=== PATIENT | male | born 1960 | race Caucasian/White ===

== ENCOUNTER 2018-03-15 20:33 | Inpatient (IN) | payer SELFPAY ==
[~2018-03-15] VITALS: Ht 175.3 cm; Wt 68.5 kg
[2018-03-15 20:32] VITALS: O2SAT 100
[~2018-03-15 20:33] MED LIST: Z.0.NO CURRENT MEDS
[2018-03-15] MEDS ORDERED: SODIUM CHLOR 0.9% 1000 ML INJ 1,000 ML IV ONE (20:36)
[2018-03-15 20:37] VITALS: BP 153/96; PULSE 90; RESP 30; TEMP 97.3; O2SAT 100
[2018-03-15] MEDS ORDERED: HEPARIN SODIUM - IV 10,000 UNITS/10 ML VIAL IV PUSH STA (20:44)
[2018-03-15] MEDS ORDERED: SODIUM CHLORIDE 0.9% FLUSH 10 ML FLUSH IVF PRN (20:45)
[2018-03-15 20:50] VITALS: BP 158/100; PULSE 84; RESP 28; O2SAT 100
[2018-03-15 20:54] LABS: AUTOMATED NEUTROPHIL # 3.7 TH/MM3 (1.8-7.7); BASOPHIL % 0.7 % (0.0-2.0); EOSINOPHIL # 0.1 TH/MM3 (0-0.4); EOSINOPHIL % 1.3 % (0.0-4.0); HEMATOCRIT 39.9 % (39.0-51.0); HEMOGLOBIN 13.5 GM/DL (13.0-17.0); LYMPH % 39.5 % (9.0-44.0); LYMPHOCYTE # 2.8 TH/MM3 (1.0-4.8); MEAN CELL VOLUME 100.5 FL (80.0-100.0); MEAN CORPUSCULAR HEMOGLOBIN 34.1 PG (27.0-34.0); MEAN CORPUSCULAR HGB CONC 33.9 % (32.0-36.0); MEAN PLATELET VOLUME 8.1 FL (7.0-11.0); MONO % 6.9 % (0.0-8.0); MONOCYTE # 0.5 TH/MM3 (0-0.9); NEUT % 51.6 % (16.0-70.0); PLATELET COUNT 201 TH/MM3 (150-450); RED BLOOD COUNT 3.97 MIL/MM3 (4.50-5.90); RED CELL DISTRIBUTION WIDTH 13.4 % (11.6-17.2); WHITE BLOOD COUNT 7.2 TH/MM3 (4.0-11.0)
[2018-03-15] MEDS ORDERED: MIDAZOLAM HCL 2 MG/2 ML VIAL ONE (20:58)
[2018-03-15] MEDS ORDERED: HEPARIN SODIUM - IV 10,000 UNITS/10 ML VIAL ONE (20:58)
[2018-03-15] MEDS ORDERED: HEPARIN-NS/PF INJ 1,500 ML ONE (20:58)
[2018-03-15] MEDS ORDERED: LIDOCAINE HCL 1% PF 30 ML VIAL ONE (21:00)
[2018-03-15 21:10] LABS: CALCIUM 7.9 MG/DL (8.5-10.1)
--- NOTE | 2018-03-15 21:10 | PD ---
HPI Chief Complaint: STEMI Alert Time Seen by Provider: 20:36 Travel History International Travel<30 days: No Contact w/Intl Traveler<30days: No Traveled to known affect area: No History of Present Illness HPI 57-year-old male states that he was having chest pain this morning. He states it got worse at about 5 PM. His finally called the ambulance for him and he had Significant elevation so a STEMI alert was called. He was given aspirin and 3 nitroglycerin which lowered his blood pressure but then he was given IV fluids with adequate response. He states he is also having nausea. He states his pain is better with the medicine. He states he has not seen a physician in 10 years. He denies any other concurrent complaints. [facility] Past Medical History Medical History: Denies Significant Hx Cardiovascular Problems: No Tetanus Vaccination: Unknown Influenza Vaccination: No Past Surgical History Surgical History: No Previous Surgery Family History Family Myocardial Infarction: Yes (FATHER) Social History Alcohol Use: No Tobacco Use: Yes (1 PPD) Substance Use: Yes (SMOKES MARIJUANA) Allergies-Medications (Allergen,Severity, Reaction): Coded Allergies: No Known Allergies (Verified Adverse Reaction, Unknown, 03/15/18) Reported Meds & Prescriptions Reported Meds & Active Scripts Active No Active Prescriptions or Reported Medications Review of Systems Except as stated in HPI: all other systems reviewed are Neg Physical Exam Narrative GENERAL: 57-year-old male who appears ill SKIN: Focused skin assessment warm/dry. HEAD: Atraumatic. Normocephalic. EYES: Pupils equal and round. No scleral icterus. No injection or drainage. ENT: No nasal bleeding or discharge. Mucous membranes pink and moist. NECK: Trachea midline. CARDIOVASCULAR: Regular rate and rhythm. RESPIRATORY: No accessory muscle use. Clear to auscultation. Breath sounds equal bilaterally. GASTROINTESTINAL: Abdomen soft, non-tender, nondistended. MUSCULOSKELETAL: No obvious deformities. No clubbing. No cyanosis. No edema. NEUROLOGICAL: Awake and alert. No obvious cranial nerve deficits. Motor grossly within normal limits. Normal speech. PSYCHIATRIC: Appropriate mood and affect; insight and judgment normal. Data Data Last Documented VS Vital Signs Date Time Temp Pulse Resp B/P (MAP) Pulse Ox O2 Delivery O2 Flow Rate FiO2 03/15/18 20:51 03/15/18 20:50 84 28 100 Nasal Cannula 3.00 03/15/18 20:37 97.3 Orders Orders Troponin I (03/15/18 20:36) Ckmb (Isoenzyme) Profile (03/15/18 20:36) Complete Blood Count With Diff (03/15/18 20:36) I-Stat Profile (03/15/18 20:36) I-Stat Creatinine (03/15/18 20:36) Calcium (03/15/18 20:36) Magnesium (Mg) (03/15/18 20:36) Prothrombin Time / Inr (Pt) (03/15/18 20:36) Act Partial Throm Time (Ptt) (03/15/18 20:36) B-Type Natriuretic Peptide (03/15/18 20:36) Chest, Single Ap (03/15/18 20:36) Electrocardiogram (03/15/18 20:36) Oxygen Administration (03/15/18 20:36) Iv Access Insert/Monitor (03/15/18 20:36) Oximetry (03/15/18 20:36) Sodium Chlor 0.9% 1000 Ml Inj (Ns 1000 M (03/15/18 20:36) Sodium Chloride 0.9% Flush (Ns Flush) (03/15/18 20:45) Heparin Inj (Heparin Inj) (03/15/18 20:44) Admit Order (Ed Use Only) (03/15/18 20:52) Labs Laboratory Tests Test 03/15/18 20:35 White Blood Count 7.2 TH/MM3 Red Blood Count 3.97 MIL/MM3 Hemoglobin 13.5 GM/DL Bedside Hemoglobin 13.3 G/DL Hematocrit 39.9 % Bedside Hematocrit 39.0 % Mean Corpuscular Volume 100.5 FL Mean Corpuscular Hemoglobin 34.1 PG Mean Corpuscular Hemoglobin Concent 33.9 % Red Cell Distribution Width 13.4 % Platelet Count 201 TH/MM3 Mean Platelet Volume 8.1 FL Neutrophils (%) (Auto) 51.6 % Lymphocytes (%) (Auto) 39.5 % Monocytes (%) (Auto) 6.9 % Eosinophils (%) (Auto) 1.3 % Basophils (%) (Auto) 0.7 % Neutrophils # (Auto) 3.7 TH/MM3 Lymphocytes # (Auto) 2.8 TH/MM3 Monocytes # (Auto) 0.5 TH/MM3 Eosinophils # (Auto) 0.1 TH/MM3 Basophils # (Auto) 0.0 TH/MM3 CBC Comment DIFF FINAL Differential Comment Prothrombin Time 10.7 SEC Prothromb Time International Ratio 1.1 RATIO Activated Partial Thromboplast Time 23.5 SEC Bedside Sodium 142 MMOL/L Bedside Potassium 3.0 MMOL/L Bedside Chloride 103 MMOL/L Bedside Blood Urea Nitrogen 19 MG/DL Bedside Creatinine 1.1 MG/DL Bedside Glucose 137 MG/DL Calcium Level 7.9 MG/DL MDM Medical Decision Making Medical Screen Exam Complete: Yes Emergency Medical Condition: Yes Medical Record Reviewed: Yes (No prior significant records here) Interpretation(s) EKG shows elevation to 3 and aVF with reciprocal changes I stats reviewed with potassium 3.0 noted otherwise no significant findings Prelim chest x-ray showed normal mediastinum without significant pneumothorax CBC & BMP Diagram 03/15/18 20:35 Differential Diagnosis STEMI, dissection, anemia Narrative Course Patient arrived and had received aspirin and nitroglycerin and IV fluids. Pain had improved. After review of I stats and chest x-ray patient was given heparin. Dispensing Optician Apprentice was again updated and patient went to the Traveling Nurse. I went and talked with family and the waiting room and they were updated as well and history confirmed. Critical Care Narrative Aggregate critical care time was 35 minutes. Time to perform other separately billable procedures was not included in the critical care time. My time did not include minutes spent treating any other patients simultaneously or on activities that did not directly contribute to the patient's treatment. The services I provided to this patient were to treat and/or prevent clinically significant deterioration that could result in: Cardiogenic shock, I provided critical care services requiring my management, as noted below: Chart data review, documentation time, medication orders and management, vital sign assessments/reviewing monitor data, ordering and reviewing lab tests, ordering and interpreting/reviewing x-rays and diagnostic studies, care of the patient and discussion of the patient with the admitting physicians. Physician Communication Physician Communication dr wall notified of ambulance call and is on his way in dr wall updated at bedside Diagnosis Primary Impression: STEMI (ST elevation myocardial infarction) Qualified Codes: I21.11 - ST elevation (STEMI) myocardial infarction involving right coronary artery Scripts No Active Prescriptions or Reported Meds Kori Ruiz MD Mar 15, 2018 21:10
[2018-03-15] MEDS ORDERED: BIVALIRUDIN 250 MG VIAL ONE ×2 (21:11→22:02)
[2018-03-15 21:12] LABS: INTERNATIONAL NORMALIZED RATIO 1.1 RATIO; PROTHROMBIN TIME - PATIENT 10.7 SEC (9.8-11.6)
[2018-03-15 21:16] LABS: MAGNESIUM 1.8 MG/DL (1.5-2.5)
[2018-03-15] MEDS ORDERED: ATROPINE SULFATE 1 MG/10 ML SYRINGE ONE ×2 (21:24→22:22)
--- NOTE | 2018-03-15 21:24 | RADRPT ---
EXAM DATE: 03/15/2018 8:48 PM EDT AGE/SEX: 57 years / Male INDICATIONS: Stemi alert CLINICAL DATA: This is the patient's initial encounter. Patient reports that signs and symptoms have been present for 1 day and indicates a pain score of 10/10. MEDICAL/SURGICAL HISTORY: None. None. COMPARISON: [facility], CHEST SINGLE AP, 04/04/2011. . FINDINGS: A single AP view of the chest demonstrates the lungs to be symmetrically aerated without evidence of mass, infiltrate or effusion. The cardiomediastinal contours are unremarkable. Osseous structures a re intact. CONCLUSION: No acute cardiopulmonary disease. Electronically signed by: Con Gusman MD 03/15/2018 9:23 PM EDT
[2018-03-15 21:39] LABS: TROPONIN I 0.63 NG/ML (0.02-0.05)
[2018-03-15] MEDS ORDERED: TICAGRELOR 90 MG TAB PO ONE (21:43)
[2018-03-15 22:15] VITALS: PULSE 91
[2018-03-15] MEDS ORDERED: BIVALIRUDIN INJ 250 MG in SODIUM CHLORIDE 0.9% INJ 50 ML IV SCH (22:19)
[2018-03-15] MEDS ORDERED: SODIUM CHLOR 0.9% 1000 ML INJ 1,000 ML IV SCH (22:19)
--- NOTE | 2018-03-15 22:23 | CATHPROC ---
[employer] HIS Report Study Information Study Number Admission Scheduled Start Study Start [id number] Mar 15 2018 8:33PM 03/15/2018 Mar 15 2018 8:56PM [facility] Cardiac Catheterization Admit Source Facility Department Emergency department [facility] - Operations Officer Physician and Clinical Staff Initial Carl Glover Workforce Development Vice President Jem Cazares,RN Workforce Development Vice PresidentJem Mai,RN Recorder Sissy Fernandes,RT(R) (BS) Scrub Clau Dyer,COLOR STRAINER TECH2 Procedures Performed Procedure Location (Site) Vessel Name Angiogram LV LV Ventricle Coronary Angiograms LCA Left Coronary Drug Eluting Inflatio RCA Right Coronary Drug Eluting Inflatio RCA Dist Right Coronary Drug Eluting Inflatio RCA Mid Right Coronary Drug Eluting Inflatio RCA Prox Right Coronary L Heart Cath PTCA RCA Prox Right Coronary Wire insertion Fem Art (right) Femoral Art Equipment Time Record Center Coordinator Description Size Mfg Part Number Used/Scraped WIRE, BALANCE MIDDLEWEIGHT [id number] 21:13 [employer] 190CM Used 190CM *[id number] WIRE, HI TORQUE ALLSTAR [id number] 21:15 [employer] 190CM Used 190CM *[id number] TRANSDUCER, TRUWAVE [id number] 21:06 MILLER RIVERO * Used W/STOCKCOCK *[id number] 21:44 [employer], SYNERGY 4.0 X 8MM Used *[id number] [phone] *[id number] [phone] *[id number] PIGTAIL ANG. 145 INFINITI [phone] CATHETER *[id number] 21:55 [employer] ANGIOSEAL, FR6 VIP FR 6 Used *[id number] 21:06 [email or web address] BLANKET,WARM AIR CCL * Used *[id number] 21:06 [employer] PACK, CCL CUSTOM * Used *[id number] 21:06 [employer] PACER PEN, SKIN DUAL W/ RULER * Used *[id number] 21:15 [employer] BALLOON, 3.0 X 20MM EUPHORA 20MM Used *[id number] 21:27 [employer] STENT, 4.0 18MM SANCHEZ 4.0 18MM Used *[id number] 21:32 [employer] STENT, 4.0 18MM SANCHEZ 4.0 18MM Used *[id number] 21:36 [employer] STENT, 4.0 8MM SANCHEZ 4.0 8MM Used *[id number] 21:38 [employer] STENT, 4.0 8MM SANCHEZ 4.0 8MM Used *[id number] 21:23 [employer] 30 ROBINA INDEFLATOR Used *[id number] 21:06 [employer] SHEATH, FR6.5 PRELUDE 11CM FR 6.5 038ACT Used *[id number] 21:06 [employer] WIRE, 3MMJ .035 180CM 180CM Used *[id number] 21:06 [employer] MANIFOLD, 4 PORT * Used *[id number] 21:06 [employer] OMNIPAQUE, 350 MG, 150ML 150ML [id number] Used Equipment Model, Serial, Lot Number and Expiration Data Description Model Number Serial Number Lot Number Expiration Date STENT, 4.0 18MM SANCHEZ [id number] 11-15-2019 STENT, 4.0 18MM SANCHEZ [id number] 09-03-2019 History: Current Medications Medication Dosage/Unit Route Frequency Last Date/Time Taken HEPARIN History: Allergies Allergy Reaction No Known Allergies History: Risk Factors Family History of Hypertension Dyslipidemia Previous GA Previous Heart Failure Premature CAD No No No No No Prior Valve Prior PCI Prior CABG Surgery No No No Cerebrovascular Peripheral Artery Chronic Lung On Dialysis Diabetes Disease Disease Disease No No No No No History: Symptoms/Diagnosis Selection Items Chest pain History: Stress Tests Stress or Imaging Studies Performed No Labs Glucose (mg/dl) BUN (mg/dl) 74.00-106.00 7.00-18.00 137 19 Na (meq/l) K (meq/l) 136.00-145.00 3.50-5.10 142 3 Medication Medication Total Dose (Bolus/Oral) Medication Total Dosage/Unit 1% XYLOCAINE 20 mL ANGIOMAX BOLUS 11 mL ATROPINE 1 mg BRILINTA 180 mg Medications (Bolus/Oral) Medication Time Given Dosage/Unit Administered By Reason 1% XYLOCAINE 03/15/2018 9:05:26 PM 20 mL Carl Wade 20 mL 1% XYLOCAINE given in lab by Carl Wade in Right Groin via Subcutaneous. ANGIOMAX BOLUS 03/15/2018 9:13:54 PM 11 mL Jem Hernandez 11 mL ANGIOMAX BOLUS given in lab by Jem Hernandez RN in Left Antecubital via Peripheral IV. ATROPINE 03/15/2018 9:21:47 PM 1 mg Jem Hernandez 1 mg ATROPINE given in lab by eJm Hernandez RN in Right Antecubital via Peripheral IV. BRILINTA 03/15/2018 10:00:41 PM 180 mg Jem Cazares 180 mg BRILINTA given in lab by Jem Cazares RN via Oral. Medication (Drip) Medication Time Given Dosage/Unit Concentration/Unit Diluent (ml) Solutio n ANGIOMAX DRIP 03/15/2018 9:15:23 PM 1.754 mg/kg/hr 250 mg 50 NaCl .9 1.754 mg/kg/hr ANGIOMAX DRIP given in lab by Jem Cazares RN in Right Antecubital via Peripheral IV. Pump/Drip Flow = 24.9 ml/hr using NaCl .9 with a concentration of 250 mg in 50 ml. IV Solutions 03/15/2018 9:00:59 PM 0 mL (IV) 500 NaCl .9 IV Solutions given in lab by Jem Hernandez RN in Right Antecubital via Peripheral IV. Pump/Drip Flow = 30 ml/hr using NaCl .9. MERCEDES-SYNEPHRINE 03/15/2018 9:22:49 PM 0.2 mg 0.2 mg MERCEDES-SYNEPHRINE given in lab by Jem Hernandze RN in Right Antecubital via Peripheral IV. Initial Case Assessment Cardiovascular HR Rhythm NIBP Chest Pain 88 reg 145/98 8 Edema Present Skin color Skin None Normal Warm Dry Circulatory - Right Pulses Dorsalis Pedis Femoral 2 2 Scale (0,1,2,3,4,d) Circulatory - Left Pulses Dorsalis Pedis Femoral 2 2 Scale (0,1,2,3,4,d) Circulatory - Lower Extremities Color Lower Right Color Lower Left Normal Normal Neurological State Oriented to time-place- Alert Moves all extremities person Respiration - General Respiration Rate SpO2 (%) (B/min) 20 97 Chronological Log Time Study Chronological Log 20:54:40 Patient arrived via Bed. 20:55:42 Patient Name, D.O.B, / Armband Verified By R.N. Vitals capture started with the following parameters, Patient=Adult, Interval=5 min, Initial Pr mdfitr=794 mmHg, 21:00:41 Deflation Rate=5 mmHg, Cuff placed on Left Arm 21:00:43 Consent signed by the physician and the patient and verified by the Operations Officer staff. 21:00:44 Pre-op and post- op instructions given; patient acknowledges understanding of instructions. 21:00:49 Verbal Stimulation=2 Physical Stimulation=2 Airway=2 Respiration=2 TOTAL=8. (0=absent, 1=li mited, 2=present) 21:00:53 Presedation assessment performed by Operations Officer RN. 21:00:56 Patient Warmer Placed on the Table. 21:00:57 Disposable Defibrillator Pads Placed On Patient. 21:00:58 Sammy Prominences Protected 21:00:59 A # 20 IV was noted in the Antecubital (right). Grade = 0 IV Solutions given in lab by Jem Hernandez RN in Right Antecubital via Peripheral IV. Pump/Dri p Flow = 30 ml/hr using 21:00:59 NaCl .9. 21:01:00 History and physical on the chart or being dictated. Assessment: Initial Case, HR=88 BPM, Rhythm=reg, KZFW=741/98 mmhg, Chest Pain=8, Edema=None, Co hellen=Normal, Skin = Warm, Dry Right Pulses: Virgil Ped=2, Femoral=2 Left Pulses: Virgil Ped=2, Femoral=2 21:01:01 Lower Right Extremities: Color=Normal Lower Left Extremities: Color=Normal Neurological: State=Alert, Ox3, CARDONA Respiration: Resp=20 B/min, SpO2=97 % 21:01:04 Bilateral groins prepped with 2% chlorhexidine, and draped after a 3 minute waiting time. 21:01:36 HR=89 bpm, UNRE=723/101 mmhg, SpO2=98.0 %, Resp=22 B/min, Pain=8, Gary=10, Lomeli=2 21:02:20 Reference ECG taken Time Out. Correct patient, correct procedure, correct physician, labs, allergies, and equipment verified with orthodontic laboratory technician 21:03:34 team present. Fire risk assesment completed (see hard stop sheet for coding). Time Out Conc urred by MD and individual staff in procedure. 21:04:21 Case Start 21:04:52 Pressure channel 1 zeroed. 21:05:26 20 mL 1% XYLOCAINE given in lab by Carl Wade in Right Groin via Subcutaneous. 21:05:32 Access site was Right Femoral Artery. 21:05:39 A SHEATH, FR6.5 PRELUDE 11CM FR 6.5 was advanced into the Fem Art (right) using the Percuta neous technique. A JL 4.5 GUIDE CATHETER FR 6 was advanced over a wire. OMNIPAQUE, 350 MG, 150ML 150ML was used for 21:06:00 injections. 21:06:17 HR=89 bpm, WQYJ=743/98 mmhg, SpO2=97.0 %, Resp=21 B/min, Pain=8, Gary=10, Lomlei=2 Recorded Pressure: Ao, HR=84, Condition=Condition 1 21:07:21 (Aorta) Ao 136/87/109 21:08:11 The LCA was injected and visualized at various angles. OMNIPAQUE, 350 MG, 150ML 150ML used . 21:08:59 Catheter was removed A JR 4.0 GUIDE CATHETER FR 6 was advanced over a wire. OMNIPAQUE, 350 MG, 150ML 150ML was used for 21:09:00 injections. Recorded Pressure: LV, HR=96, Condition=Condition 1 21:10:21 (Left Ventricle) LV 131/6/47 21:11:18 HR=87 bpm, VPHW=488/88 mmhg, SpO2=98.0 %, Resp=21 B/min, Pain=8, Gary=10, Lomeli=2 21:12:20 A WIRE, BALANCE MIDDLEWEIGHT 190CM 190CM was inserted via Fem Art (right). 21:13:54 11 mL ANGIOMAX BOLUS given in lab by Jem Hernandez RN in Left Antecubital via Peripheral I V. 21:14:49 Wire removed 21:14:51 A WIRE, [employer] ALLSTAR 190CM 190CM was inserted via Fem Art (right). 1.754 mg/kg/hr ANGIOMAX DRIP given in lab by Jem Cazares RN in Right Antecubital via Peripher al IV. Pump/Drip 21:15:23 Flow = 24.9 ml/hr using NaCl .9 with a concentration of 250 mg in 50 ml. 21:16:11 Wire removed for reshaping 21:16:15 HR=81 bpm, BSMJ=593/92 mmhg, SpO2=98.0 %, Resp=16 B/min, Pain=8, Gary=10, Lomeli=2 21:21:20 HR=62 bpm, IXHG=195/72 mmhg, SpO2=98.0 %, Resp=17 B/min, Pain=8, Gary=10, Lomeli=2 21:21:47 1 mg ATROPINE given in lab by Jem Hernandez RN in Right Antecubital via Peripheral IV. A BALLOON, 3.0 X 20MM EUPHORA 20MM was inserted over WIRE, HI TORQUE ALLSTAR 190CM 190CM via th e Fem 21:22:18 Art (right). A BALLOON, 3.0 X 20MM EUPHORA 20MM over a WIRE, HI TORQUE ALLSTAR 190CM 190CM in the RCA Prox w as 21:22:31 inflated using a 30 ROBINA INDEFLATOR at 8 robina for 18 sec. 21:22:49 0.2 mg MERCEDES-SYNEPHRINE given in lab by Jem Hernandez RN in Right Antecubital via Peripheral IV. A BALLOON, 3.0 X 20MM EUPHORA 20MM over a WIRE, HI TORQUE ALLSTAR 190CM 190CM in the RCA Prox w as 21:23:16 inflated using a 30 ROBINA INDEFLATOR at 8 robina for 10 sec. 21:23:25 Balloon Removed A BALLOON, 3.0 X 20MM EUPHORA 20MM was inserted over WIRE, HI TORQUE ALLSTAR 190CM 190CM via th e Fem 21:24:38 Art (right). A BALLOON, 3.0 X 20MM EUPHORA 20MM over a WIRE, HI TORQUE ALLSTAR 190CM 190CM in the RCA Prox w as 21:24:50 inflated using a 30 ROBINA INDEFLATOR at 12 robina for 10 sec. 21:25:46 Balloon Removed 21:26:15 QN=190 bpm, BOCS=327/87 mmhg, SpO2=96.0 %, Resp=15 B/min, Pain=8, Gary=10, Lomeli=2 A STENT, 4.0 18MM SANCHEZ 4.0 18MM was advanced through a JR 4.0 GUIDE CATHETER FR 6 over a WIRE, HI TORQUE 21:26:51 ALLSTAR 190CM 190CM. A STENT, 4.0 18MM SANCHEZ 4.0 18MM was deployed using a 30 ROBINA INDEFLATOR at 12 atmospheres for 17 seconds in 21:27:30 the RCA Mid. 21:27:58 Delivery device removed A STENT, 4.0 18MM SANCHEZ 4.0 18MM was advanced through a JR 4.0 GUIDE CATHETER FR 6 over a WIRE, HI TORQUE 21:29:38 ALLSTAR 190CM 190CM. A STENT, 4.0 18MM SANCHEZ 4.0 18MM was deployed using a 30 ROBINA INDEFLATOR at 18 atmospheres for 18 seconds in 21:30:29 the RCA Prox. 21:31:16 HR=98 bpm, TPFO=139/72 mmhg, Resp=21 B/min, Pain=8, Gary=10, Lomeli=2 21:32:35 Delivery device removed A STENT, 4.0 8MM SANCHEZ 4.0 8MM was advanced through a JR 4.0 GUIDE CATHETER FR 6 over a WIRE, HI TORQUE 21:34:01 ALLSTAR 190CM 190CM. 21:36:15 HR=98 bpm, XVWL=671/79 mmhg, SpO2=94.0 %, Resp=19 B/min, Pain=8, Gary=10, Lomeli=2 A STENT, 4.0 8MM SANCHEZ 4.0 8MM was deployed using a 30 ROBINA INDEFLATOR at 18 atmospheres for 10 s econds in the 21:36:42 RCA Prox. A STENT, 4.0 8MM SANCHEZ 4.0 8MM was advanced through a JR 4.0 GUIDE CATHETER FR 6 over a WIRE, HI TORQUE 21:37:55 ALLSTAR 190CM 190CM. A STENT, 4.0 8MM SANCHEZ 4.0 8MM was deployed using a 30 ROBINA INDEFLATOR at 12 atmospheres for 12 s econds in the 21:38:14 RCA Dist. A STENT, 4.0 8MM SANCHEZ 4.0 8MM was deployed using a 30 ROBINA INDEFLATOR at 12 atmospheres for 12 s econds in the 21:39:09 RCA Dist. :39:30 Delivery device removed 21:41:16 HR=98 bpm, TVZW=486/74 mmhg, SpO2=96.0 %, Resp=19 B/min, Pain=8, Gary=10, Lomeli=2 A STENT, SYNERGY 4.0 X 8MM was advanced through a JR 4.0 GUIDE CATHETER FR 6 over a WIRE, HI TO RQUE 21:42:39 ALLSTAR 190CM 190CM. A STENT, SYNERGY 4.0 X 8MM was deployed using a 30 ROBINA INDEFLATOR at 14 atmospheres for 18 seco nds in the 21:44:24 RCA. A STENT, SYNERGY 4.0 X 8MM was deployed using a 30 ROBINA INDEFLATOR at 15 atmospheres for 10 seco nds in the 21:44:56 RCA. A STENT, SYNERGY 4.0 X 8MM was deployed using a 30 ROBINA INDEFLATOR at 18 atmospheres for 10 seco nds in the 21:45:01 RCA. 21:45:10 Delivery device removed 21:46:13 HR=95 bpm, XSTX=872/77 mmhg, SpO2=96.0 %, Resp=18 B/min, Pain=8, Gary=10, Lomeli=2 21:46:29 Catheter was removed 21:46:36 Wire removed A PIGTAIL ANG. 145 INFINITI CATHETER FR 6 was advanced over a wire. OMNIPAQUE, 350 MG, 150ML 15 0ML was 21:48:40 used for injections. Recorded Pressure: LV, HR=98, Condition=Condition 1 21:49:43 (Left Ventricle) LV 93/19/24 21:51:16 HR=96 bpm, ASZS=078/73 mmhg, SpO2=96.0 %, Resp=17 B/min, Pain=8, Gary=10, Lomeli=2 21:51:26 The LV was injected at 8 cc/sec for a total of 20. OMNIPAQUE, 350 MG, 150ML 150ML used. Recorded Pressure: LV, Ao, HR=95, Condition=Condition 1 21:52:00 (Left Ventricle) LV 98/19/27, (Aorta) Ao 103/70/86 21:52:28 Catheter was removed 21:54:42 An injection in the Fem Art (right) was made through the SHEATH, FR6.5 PRELUDE 11CM FR 6.5. 21:54:58 ANGIOSEAL, FR6 VIP FR 6 placement in the Fem Art (right) 21:56:11 HR=95 bpm, NXHT=466/82 mmhg, SpO2=96.0 %, Resp=17 B/min, Pain=8, Gary=10, Lomeli=2 21:56:36 Case End (Physician broke scrub) 21:57:54 Catheter(s) removed without difficulty 21:58:30 No case complications noted. 21:58:53 Bedside Report will be given. 21:59:11 Implantable Device card placed in patient's chart. 21:59:19 A Left Heart Cath was performed. 22:00:41 180 mg BRILINTA given in lab by Jem Cazares RN via Oral. 22:00:44 Sterile dressing applied to site 22:01:14 HR=92 bpm, MKBE=588/77 mmhg, SpO2=97.0 %, Resp=20 B/min, Pain=8, Gary=10, Lomeli=2 22:04:31 Vitals capture stopped. 22:06:22 Patient moved to [facility] End Study - Contrast Media Used In Study Contrast Total Opened (mL) Total Used (mL) Total Wasted (mL) Omnipaque 130 130 0 End Study - Radiation Exposure Fluoro Time (minutes) 17.4 End Study - Sheaths Sheaths Pulled By Sheath Hold Time (min) Carl Wade End Study - Patient Disposition Complications Transferred To Interventional Outcome No Telemetry Bed successful
[2018-03-15] MEDS ORDERED: ACETAMINOPHEN 325 MG TAB PO PRN (22:30)
[2018-03-15] MEDS ORDERED: MISC INFORMATION XX ONE (22:30)
[2018-03-15] MEDS ORDERED: oxyCODONE/ACETAMINOPHEN 5 MG/325 MG TAB PO PRN (22:30)
[2018-03-15] MEDS ORDERED: SODIUM CHLORIDE 0.9% FLUSH 10 ML FLUSH IV FLUSH PRN (22:30)
[2018-03-15] MEDS ORDERED: METOCLOPRAMIDE HCL 10 MG/2 ML VIAL IV PUSH PRN (22:30)
[2018-03-15 23:38] VITALS: BP 118/77; PULSE 91; RESP 19; TEMP 97.6; O2SAT 99
[2018-03-15 23:55] VITALS: PULSE 89
[2018-03-16] VITALS (31 sets, daily range): BP systolic 104–131; BP diastolic 65–79; PULSE 53–147; RESP 16–19; TEMP 97.6–98.4; O2SAT 96–100
--- NOTE | 2018-03-16 02:20 | MH ---
cc: Carl Wade MD DATE OF ADMISSION: 03/15/2018 ADMISSION DIAGNOSES: 1. Acute inferior ST-elevation myocardial infarction. 2. Two-vessel coronary artery disease. 3. Chronic tobacco use. CHIEF COMPLAINT: Chest pain. HISTORY OF PRESENT ILLNESS: This is a 57-year-old man who has not been to a doctor in 10 years. He developed chest pain this morning, but did not come to the hospital. It then got acutely worse this afternoon and he finally decided to come in to the hospital. He was diagnosed with an acute inferior STEMI and taken directly to the senior label specialist and had intervention. PAST MEDICAL HISTORY: Unremarkable. PAST SURGICAL HISTORY: Negative. FAMILY HISTORY: Positive for myocardial infarction in his father. SOCIAL HISTORY: Notable for a 4-igej-zmx-day smoking history and marijuana use. ALLERGIES: NONE KNOWN. REVIEW OF SYSTEMS: The patient has not had any GI bleeding or urinary bleeding. Remaining review of systems is negative. PHYSICAL EXAMINATION: GENERAL: A thin, well-developed man who is acutely ill. VITAL SIGNS: Charted. HEENT: Unremarkable. NECK: Shows increased central venous pressure. CHEST: Clear to auscultation. CARDIOVASCULAR: S1, S2, regular rate and rhythm. I do not hear an S3 or murmur. ABDOMEN: Soft, nontender. EXTREMITIES: No clubbing, cyanosis, or edema. DIAGNOSTIC DATA: EKG shows an acute inferoposterior STEMI. PLAN: The patient has undergone stenting of the right coronary artery with good results. He has significant LAD disease that will be attended to at a future date. He has been placed on aspirin, Brilinta, metoprolol and atorvastatin. We will check serum lipid values. He has been counseled to quit smoking. Anticipated hospital stay is 2-3 days. MD CLAY Landon/CLAYTON , 10:25 PM , 02:18 AM
--- NOTE | 2018-03-16 03:55 | MA ---
cc: Carl Wade MD DATE: 03/15/2018 PROCEDURES PERFORMED: Left heart catheterization, left ventriculography, coronary angiography, balloon angioplasty and stenting of the proximal and mid right coronary artery, requiring 5 stents, right femoral angiography with Angio-Seal placement. 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 The right groin was prepped and draped in sterile fashion. Using 1 percent lidocaine for local anesthesia, a 6.5-Setswana sheath was inserted in the right femoral artery. First, left coronary angiography was completed using a left 4.5 Jong catheter in orthogonal views. Next, I introduced a JR4 guiding catheter and diagnosed the right coronary artery occlusion. Intravenous Angiomax was started. I then tried to wire the occlusion. I tried multiple attempts with the BMW wire and could not get across. I then switched to an All Star wire. I had to put different bends in the wire, and it took quite a while before I could finally penetrate the occlusion and get the wire placed distally. I then predilated the proximal occlusion with a 3.0 x 20 balloon. There was then a mid tight stenosis that I also dilated with the same balloon. I then stented the mid lesion with a 4.0 x 18 mm Farhat stent at 12 atmospheres. I stented the proximal lesion with a 4.0 x 18 mm Eleva stent at 18 atmospheres. There was disruption on the ends of both stents, and I ended up placing three additional 8 mm stents, one on the distal end of the mid stent, one spanning the gap between the proximal and mid stents, and one just proximal to the proximal stent, and I postdilated the overlap to meld all the stents together. An excellent angiographic result was achieved. During the procedure, the patient became profoundly bradycardic and required atropine, which restored his heart rate and blood pressure. After his right coronary artery was fixed, an angled pigtail catheter was then used to measure left ventricular pressure, followed by left ventriculography and then a pullback. Angiography was then obtained of the right femoral artery via the sheath, followed by uncomplicated Angio-Seal placement. Prior to Angio-Seal placement, I prepped the patient with ChloraPrep, used clean sterile towels, and changed to clean sterile gloves. There was good hemostasis. He will receive one additional bag of Angiomax. He has been loaded with Brilinta. We will continue aspirin and Brilinta and introduce a beta alexx as hemodynamics permit. There were no complications. FINDINGS: 1. Hemodynamics: Left ventricular pressure was 98/19 with an end diastolic pressure elevated at 27. Aortic pressure was 103/70 with a mean of 86. There was no gradient during pullback from the left ventricle to the aorta. 2. Left ventriculography: Left ventriculography shows severe posterobasal hypokinesis. Ejection fraction, however, appears normal at about 55 percent. 3. Coronary angiography: The left main coronary artery appears normal. It trifurcates into a ramus intermediate branch, the LAD, and the circumflex vessel. The LAD has an eccentric 70% proximal stenosis, and coming out of the middle of the stenosis is a diagonal branch that has 90% ostial stenosis. This is a true Astudillo 1,1,1 bifurcated lesion. The remainder of the LAD is mildly tortuous but appears normal. The remainder of the diagonal branch is irregular, but no significant stenosis. The ramus intermediate branch has about 30% ostial disease. The circumflex artery proper has diffuse 35% disease in its midsection and gives off a marginal branch and a posterolateral branch. The right coronary artery is totally occluded proximally. 4. Results of stenting: Following stenting of the right coronary artery, 0 percent residual stenosis had been seen throughout, with resumption of PHILIP 3 flow. CONCLUSIONS: 1. Markedly elevated left ventricular end-diastolic pressure. 2. Preserved ejection fraction with inferior hypokinesis. 3. Two-vessel coronary artery disease with total occlusion of the proximal right coronary artery and severe stenosis of the mid right coronary artery, now successfully stented. The patient has residual severe stenosis in the proximal LAD, which is a bifurcated lesion, Astudillo 1,1,1 classification. PLAN: We will defer intervention on the LAD probably for 30 days to allow full recovery. I will have him on aspirin and Brilinta, and introduce a beta alexx if heart rate and hemodynamics permit. Will check lipid values. The patient has been counseled to quit smoking. MD CLAY Landon/CLAYTON , 10:17 PM , 03:53 AM
[2018-03-16 04:11] LABS: AUTOMATED NEUTROPHIL # 5.2 TH/MM3 (1.8-7.7); BASOPHIL % 0.2 % (0.0-2.0); EOSINOPHIL % 0.1 % (0.0-4.0); HEMATOCRIT 38.1 % (39.0-51.0); HEMOGLOBIN 12.8 GM/DL (13.0-17.0); LYMPH % 13.9 % (9.0-44.0); LYMPHOCYTE # 0.9 TH/MM3 (1.0-4.8); MEAN CELL VOLUME 101.2 FL (80.0-100.0); MEAN CORPUSCULAR HGB CONC 33.6 % (32.0-36.0); MEAN PLATELET VOLUME 8.1 FL (7.0-11.0); MONO % 6.2 % (0.0-8.0); MONOCYTE # 0.4 TH/MM3 (0-0.9); NEUT % 79.6 % (16.0-70.0); PLATELET COUNT 164 TH/MM3 (150-450); RED BLOOD COUNT 3.77 MIL/MM3 (4.50-5.90); RED CELL DISTRIBUTION WIDTH 13.3 % (11.6-17.2); WHITE BLOOD COUNT 6.5 TH/MM3 (4.0-11.0)
[2018-03-16 04:32] LABS: ALBUMIN 3.3 GM/DL (3.4-5.0); AST (GOT) 273 U/L (15-37); BICARBONATE 21.5 MEQ/L (21.0-32.0); BLOOD UREA NITROGEN 12 MG/DL (7-18); CALCIUM 7.5 MG/DL (8.5-10.1); CHLORIDE 111 MEQ/L (98-107); CHOLESTEROL 195 MG/DL (120-200); CREATININE 0.95 MG/DL (0.60-1.30); GLOMERULAR FILTRATION RATE 82 ML/MIN (>89); SODIUM (NA) 142 MEQ/L (136-145)
[2018-03-16 04:47] LABS: ALKALINE PHOSPHATASE 79 U/L (45-117); ALT (GPT) 70 U/L (12-78); CHOLESTEROL/ HDL RATIO 5.14 RATIO; GLUCOSE,RANDOM 104 MG/DL (74-106); HDL CHOLESTEROL 37.9 MG/DL (40.0-60.0); LDL CHOLESTEROL 143 MG/DL (0-99); TOTAL BILIRUBIN ADULT 0.6 MG/DL (0.2-1.0); TOTAL PROTEIN 6.2 GM/DL (6.4-8.2); TRIGLYCERIDES 73 MG/DL (42-150)
[2018-03-16] MEDS ORDERED: METOPROLOL TARTRATE 25 MG TAB PO SCH (09:00)
--- NOTE | 2018-03-16 09:14 | PD.CONS ---
[facility] Consult Requested By Dr. Wade Reason for Consult Medical management Primary Care Physician Unknown Diagnoses: History of Present Illness The patient is a 57-year-old male with no significant past medical history who is presenting to the hospital with chest pain. 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 He said both of his arms felt like they were numb and were quite painful. He said that he was having shortness of breath associated with that. He had to take a break from work. Later on he went back to work and the symptoms returned. He went home. At 6 PM he started to experience the same symptoms as well as crushing chest pain. He tried to apply a cold towel to his head and his body and had no improvement. He told his to call for an ambulance. In the emergency department he was found to have a STEMI and was taken to the [facility]. He currently denies any symptoms. He denies any palpitations. He did have some nausea earlier on. She would like to go home. He has been endorsing some anxiety. He has been ambulatory. He says about 10 years ago he had similar chest pain that was worked up. Discussed with nursing at the bedside. Review of Systems Except as stated in HPI: all other systems reviewed are Neg Past Family Social History Allergies: Coded Allergies: No Known Allergies (Verified Allergy, Unknown, 03/15/18) Past Medical History The patient denies medical history Family History CAD Social History The patient smokes on and off. He recently picked up the habit again a week and a half ago. He says he is committed to quit. He quit drinking alcohol a long time ago. Physical Exam Vital Signs Vital Signs Date Time Temp Pulse Resp B/P (MAP) Pulse Ox O2 Delivery O2 Flow Rate FiO2 03/16/18 07:19 97.8 69 16 128/77 (94) 100 03/16/18 06:47 58 03/16/18 05:21 64 03/16/18 04:30 68 03/16/18 03:49 74 03/16/18 03:49 98.0 75 18 120/76 (91) 96 03/16/18 02:09 74 03/16/18 01:06 75 03/16/18 01:00 80 03/16/18 00:20 83 03/15/18 23:55 89 03/15/18 23:38 97.6 91 19 118/77 (91) 99 03/15/18 22:15 91 03/15/18 20:51 03/15/18 20:50 84 28 158/100 (119) 100 Nasal Cannula 3.00 03/15/18 20:42 100 Nasal Cannula 3.00 03/15/18 20:37 97.3 90 30 153/96 (115) 100 03/15/18 20:36 100 Nasal Cannula 3.00 03/15/18 20:32 100 Nasal Cannula 3.00 03/15/18 20:32 100 3.00 Physical Exam GENERAL: This is a well-nourished, well-developed patient, in no apparent distress. SKIN: No rashes, ecchymoses or lesions. Cool and dry. HEAD: Atraumatic. Normocephalic. No temporal or scalp tenderness. EYES: Pupils equal round and reactive. Extraocular motions intact. No scleral icterus. No injection or drainage. ENT: Nose without bleeding, purulent drainage or septal hematoma. Throat without erythema, tonsillar hypertrophy or exudate. Uvula midline. Airway patent. NECK: Trachea midline. No JVD or lymphadenopathy. Supple, nontender, no meningeal signs. CARDIOVASCULAR: Regular rate and rhythm. Grade 2 systolic murmur best heard in the LLSB. RESPIRATORY: Clear to auscultation. Breath sounds equal bilaterally. No wheezes , rales, or rhonchi. GASTROINTESTINAL: Abdomen soft, non-tender, nondistended. No hepato-splenomegaly , or palpable masses. No guarding. MUSCULOSKELETAL: Extremities without clubbing, cyanosis, or edema. No joint tenderness, effusion, or edema noted. NEUROLOGICAL: Awake and alert. Cranial nerves II through XII intact. Motor and sensory grossly within normal limits. Five out of 5 muscle strength in all muscle groups. Normal speech. Laboratory Laboratory Tests Test 03/15/18 20:35 03/16/18 03:41 White Blood Count 7.2 6.5 Red Blood Count 3.97 3.77 Hemoglobin 13.5 12.8 Bedside Hemoglobin 13.3 Hematocrit 39.9 38.1 Bedside Hematocrit 39.0 Mean Corpuscular Volume 100.5 101.2 Mean Corpuscular Hemoglobin 34.1 34.0 Mean Corpuscular Hemoglobin Concent 33.9 33.6 Red Cell Distribution Width 13.4 13.3 Platelet Count 201 164 Mean Platelet Volume 8.1 8.1 Neutrophils (%) (Auto) 51.6 79.6 Lymphocytes (%) (Auto) 39.5 13.9 Monocytes (%) (Auto) 6.9 6.2 Eosinophils (%) (Auto) 1.3 0.1 Basophils (%) (Auto) 0.7 0.2 Neutrophils # (Auto) 3.7 5.2 Lymphocytes # (Auto) 2.8 0.9 Monocytes # (Auto) 0.5 0.4 Eosinophils # (Auto) 0.1 0.0 Basophils # (Auto) 0.0 0.0 CBC Comment DIFF FINAL DIFF FINAL Differential Comment Prothrombin Time 10.7 Prothromb Time International Ratio 1.1 Activated Partial Thromboplast Time 23.5 Bedside Sodium 142 Bedside Potassium 3.0 Bedside Chloride 103 Bedside Blood Urea Nitrogen 19 Bedside Creatinine 1.1 Bedside Glucose 137 Calcium Level 7.9 7.5 Magnesium Level 1.8 Total Creatine Kinase 188 2142 Creatine Kinase MB 4.8 243.9 Troponin I 0.63 B-Type Natriuretic Peptide 6 Blood Urea Nitrogen 12 Creatinine 0.95 Random Glucose 104 Total Protein 6.2 Albumin 3.3 Alkaline Phosphatase 79 Aspartate Amino Transf (AST/SGOT) 273 Alanine Aminotransferase (ALT/SGPT) 70 Total Bilirubin 0.6 Sodium Level 142 Potassium Level 4.0 Chloride Level 111 Carbon Dioxide Level 21.5 Anion Gap 10 Estimat Glomerular Filtration Rate 82 Creatine Kinase MB % 11.4 Triglycerides Level 73 Cholesterol Level 195 LDL Cholesterol 143 HDL Cholesterol 37.9 Cholesterol/HDL Ratio 5.14 Result Diagram: 03/16/1834003/16/18 034 Imaging Last Impressions Chest X-Ray 03/15/182035 Signed Impressions: CONCLUSION: No acute cardiopulmonary disease. Assessment and Plan Assessment and Plan STEMI The pt had bilateral arm pain, numbness and chest pain. EKG with marked ST elevation. S/p catheterization 03/15 with PCI to RCA. Has had frequent runs of V tach overnight. - LAD disease to be intervened upon in 30 days per cardiology. - continue cardiac regimen including ASA, Brilinta, and statin. Increase Lopressor in light of runs of V tach. - telemetry. - cardiology following. Tobacco abuse The pt says he is done smoking. - cessation instruction. Elevated AST The pt says he does not drink alcohol anymore. Possibly a stress reaction. - follow LFTs. PPx: Per cardiology Discussed Condition With Pt, nurse Danny Plunkett DO Mar 16, 2018 09:14
[2018-03-16] MEDS: TICAGRELOR 90 MG TAB PO SCH ×2 (09:38→20:09)
[2018-03-16] MEDS: ASPIRIN 81 MG CHEW TAB PO SCH (09:39)
[2018-03-16] MEDS: METOPROLOL TARTRATE 25 MG TAB PO SCH ×2 (09:39→20:09)
[2018-03-16] MEDS: SODIUM CHLORIDE 0.9% FLUSH 10 ML FLUSH IV FLUSH SCH ×2 (09:42→20:10)
[2018-03-16] MEDS: ATORVASTATIN 10 MG TAB PO SCH (09:42)
[2018-03-16] MEDS ORDERED: POTASSIUM CHLORIDE 20 MEQ CONTROLLED RELEASE TAB PO ONE (12:00)
--- NOTE | 2018-03-16 12:26 | PD.CARD.PN ---
Subjective Subjective Remarks no angina. A little SOB. Objective Medications Current Medications Medications (Trade) Dose Ordered Sig/Ruben Route Start Time Stop Time Status Last Admin (NS Flush) 2 ml UNSCH PRN IV FLUSH 03/15/18 22:30 (NS Flush) 2 ml BID IV FLUSH 03/16/18 09:00 03/16/18 09:42 (Tylenol) 325 mg Q4H PRN PO 03/15/18 22:30 (Percocet 5-325 Mg) 1 tab Q4H PRN PO 03/15/18 22:30 03/15/18 23:13 (Aspirin Chew) 81 mg DAILY PO 03/16/18 09:00 03/16/18 09:39 (Brilinta) 90 mg BID PO 03/16/18 09:00 03/16/18 09:38 (Reglan Inj) 10 mg Q4H PRN IV PUSH 03/15/18 22:30 03/15/18 23:05 (Lipitor) 40 mg DAILY PO 03/16/18 09:00 03/16/18 09:42 (Lopressor) 25 mg BID PO 03/16/18 09:00 03/16/18 09:39 Vital Signs / I&O Vital Signs Date Time Temp Pulse Resp B/P (MAP) Pulse Ox O2 Delivery O2 Flow Rate FiO2 03/16/18 11:42 98.1 64 16 106/70 (82) 99 03/16/18 10:00 70 03/16/18 09:00 72 03/16/18 08:00 70 03/16/18 07:19 97.8 69 16 128/77 (94) 100 03/16/18 07:02 147 03/16/18 07:00 59 03/16/18 06:47 58 03/16/18 05:21 64 03/16/18 04:30 68 03/16/18 03:49 74 03/16/18 03:49 98.0 75 18 120/76 (91) 96 03/16/18 02:09 74 03/16/18 01:06 75 03/16/18 01:00 80 03/16/18 00:20 83 03/15/18 23:55 89 03/15/18 23:38 97.6 91 19 118/77 (91) 99 03/15/18 22:15 91 03/15/18 20:51 03/15/18 20:50 84 28 158/100 (119) 100 Nasal Cannula 3.00 03/15/18 20:42 100 Nasal Cannula 3.00 03/15/18 20:37 97.3 90 30 153/96 (115) 100 03/15/18 20:36 100 Nasal Cannula 3.00 03/15/18 20:32 100 Nasal Cannula 3.00 03/15/18 20:32 100 3.00 I/O 03/15/18 03/15/18 03/15/18 03/16/18 03/16/18 03/16/18 07:00 15:00 23:00 07:00 15:00 23:00 Intake Total 980 ml Output Total 1150 ml Balance -170 ml Intake Oral 480 ml IV Total 500 ml Output Urine Total 1150 ml # Voids 1 Physical Exam alert CVP about 6 cm chest CTA CV S1S2 RRR, no murmur Abd soft Ext: no edeam, Right groin no hematoma. Posteriot tibial pulses OK but dorsalis pedis pulses reduced EKG dramatically improved Tele: has had some runs of NSVT Laboratory Laboratory Tests Test 03/15/18 20:35 03/16/18 03:41 White Blood Count 7.2 TH/MM3 6.5 TH/MM3 Red Blood Count 3.97 MIL/MM3 3.77 MIL/MM3 Hemoglobin 13.5 GM/DL 12.8 GM/DL Bedside Hemoglobin 13.3 G/DL Hematocrit 39.9 % 38.1 % Bedside Hematocrit 39.0 % Mean Corpuscular Volume 100.5 FL 101.2 FL Mean Corpuscular Hemoglobin 34.1 PG 34.0 PG Mean Corpuscular Hemoglobin Concent 33.9 % 33.6 % Red Cell Distribution Width 13.4 % 13.3 % Platelet Count 201 TH/MM3 164 TH/MM3 Mean Platelet Volume 8.1 FL 8.1 FL Neutrophils (%) (Auto) 51.6 % 79.6 % Lymphocytes (%) (Auto) 39.5 % 13.9 % Monocytes (%) (Auto) 6.9 % 6.2 % Eosinophils (%) (Auto) 1.3 % 0.1 % Basophils (%) (Auto) 0.7 % 0.2 % Neutrophils # (Auto) 3.7 TH/MM3 5.2 TH/MM3 Lymphocytes # (Auto) 2.8 TH/MM3 0.9 TH/MM3 Monocytes # (Auto) 0.5 TH/MM3 0.4 TH/MM3 Eosinophils # (Auto) 0.1 TH/MM3 0.0 TH/MM3 Basophils # (Auto) 0.0 TH/MM3 0.0 TH/MM3 CBC Comment DIFF FINAL DIFF FINAL Differential Comment Prothrombin Time 10.7 SEC Prothromb Time International Ratio 1.1 RATIO Activated Partial Thromboplast Time 23.5 SEC Bedside Sodium 142 MMOL/L Bedside Potassium 3.0 MMOL/L Bedside Chloride 103 MMOL/L Bedside Blood Urea Nitrogen 19 MG/DL Bedside Creatinine 1.1 MG/DL Bedside Glucose 137 MG/DL Calcium Level 7.9 MG/DL 7.5 MG/DL Magnesium Level 1.8 MG/DL Total Creatine Kinase 188 U/L 2142 U/L Creatine Kinase MB 4.8 NG/ML 243.9 NG/ML Troponin I 0.63 NG/ML B-Type Natriuretic Peptide 6 PG/ML Blood Urea Nitrogen 12 MG/DL Creatinine 0.95 MG/DL Random Glucose 104 MG/DL Total Protein 6.2 GM/DL Albumin 3.3 GM/DL Alkaline Phosphatase 79 U/L Aspartate Amino Transf (AST/SGOT) 273 U/L Alanine Aminotransferase (ALT/SGPT) 70 U/L Total Bilirubin 0.6 MG/DL Sodium Level 142 MEQ/L Potassium Level 4.0 MEQ/L Chloride Level 111 MEQ/L Carbon Dioxide Level 21.5 MEQ/L Anion Gap 10 MEQ/L Estimat Glomerular Filtration Rate 82 ML/MIN Creatine Kinase MB % 11.4 % Triglycerides Level 73 MG/DL Cholesterol Level 195 MG/DL LDL Cholesterol 143 MG/DL HDL Cholesterol 37.9 MG/DL Cholesterol/HDL Ratio 5.14 RATIO Imaging Last 24 hours Impressions Chest X-Ray 03/15/182035 Signed Impressions: CONCLUSION: No acute cardiopulmonary disease. Assessment and Plan Problem List: (1) Tobacco use ICD Codes: Z72.0 - Tobacco use Plan: He states he will quit (2) Stented coronary artery ICD Codes: Z95.5 - Presence of coronary angioplasty implant and graft Plan: Cont ASA 81mg and Brilinta (3) Hyperlipidemia LDL goal <70 ICD Codes: E78.5 - Hyperlipidemia, unspecified Plan: Atorva 40mg (4) 2-vessel coronary artery disease ICD Codes: I25.10 - Atherosclerotic heart disease of [place] coronary artery without angina pectoris Plan: At a future date will need complex PCI of LAD/D bifurcation (5) ST elevation myocardial infarction (STEMI) of inferior wall ICD Codes: I21.19 - ST elevation (STEMI) myocardial infarction involving other coronary artery of inferior wall Plan: Dramatically improved s/p PCI (6) Family history of coronary artery disease in father ICD Codes: Z82.49 - Family history of ischemic heart disease and other diseases of the circulatory system Plan: Breonna was in his 40's Assessment and Plan Possible discharge late tomorrow or Sunday AM Carl Wade MD Mar 16, 2018 12:26
[2018-03-16] MEDS ORDERED: ARTIFICIAL TEARS OPTH SOLN 15 ML BTL EACH EYE PRN (15:45)
--- NOTE | 2018-03-16 17:38 | EKG ---
Date Performed: 03/16/2018 Time Performed: 03:47:56 PTAGE: 57 years EKG: Sinus rhythm Inferior infarct - age undetermined Marked improvement in the ST changes compared to prior tracing. Abnormal ECG PREVIOUS TRACING : 03/15/2018 20.36 DOCTOR: Carl Wade Interpretating Date/Time 03/16/2018 17:36:52
--- NOTE | 2018-03-16 17:38 | EKG ---
Date Performed: 03/15/2018 Time Performed: 20:36:37 PTAGE: 57 years EKG: NORMAL Sinus rhythm ACUTE INFEROPOSTERIOR INJURY, WHICH IS NEW FROM PRIOR TRACING. PREVIOUS TRACING : 04/05/2011 03.49 DOCTOR: Carl Wade Interpretating Date/Time 03/16/2018 17:35:56
[2018-03-17] VITALS (28 sets, daily range): BP systolic 92–124; BP diastolic 57–79; PULSE 55–99; RESP 16–20; TEMP 98–98.3; O2SAT 98–100
[2018-03-17] MEDS: ATORVASTATIN 10 MG TAB PO SCH (08:53)
[2018-03-17] MEDS: METOPROLOL TARTRATE 25 MG TAB PO SCH ×2 (08:53→20:07)
[2018-03-17] MEDS: ASPIRIN 81 MG CHEW TAB PO SCH (08:53)
[2018-03-17] MEDS: TICAGRELOR 90 MG TAB PO SCH ×2 (08:53→20:07)
[2018-03-17] MEDS: SODIUM CHLORIDE 0.9% FLUSH 10 ML FLUSH IV FLUSH SCH ×2 (08:54→20:12)
--- NOTE | 2018-03-17 12:22 | PD.CARD.PN ---
Subjective Subjective Remarks no angina, no complaints Objective Medications Current Medications Medications (Trade) Dose Ordered Sig/Ruben Route Start Time Stop Time Status Last Admin (NS Flush) 2 ml UNSCH PRN IV FLUSH 03/15/18 22:30 (NS Flush) 2 ml BID IV FLUSH 03/16/18 09:00 03/17/18 08:54 (Tylenol) 325 mg Q4H PRN PO 03/15/18 22:30 03/16/18 20:08 (Percocet 5-325 Mg) 1 tab Q4H PRN PO 03/15/18 22:30 03/15/18 23:13 (Aspirin Chew) 81 mg DAILY PO 03/16/18 09:00 03/17/18 08:53 (Brilinta) 90 mg BID PO 03/16/18 09:00 03/17/18 08:53 (Reglan Inj) 10 mg Q4H PRN IV PUSH 03/15/18 22:30 03/15/18 23:05 (Lipitor) 40 mg DAILY PO 03/16/18 09:00 03/17/18 08:53 (Lopressor) 25 mg BID PO 03/16/18 09:00 03/17/18 08:53 (Tears Naturale Opth Soln) 1 drop Q4H PRN EACH EYE 03/16/18 15:45 03/16/18 16:57 Vital Signs / I&O Vital Signs Date Time Temp Pulse Resp B/P (MAP) Pulse Ox O2 Delivery O2 Flow Rate FiO2 03/17/18 11:24 98.3 67 16 123/79 (94) 100 03/17/18 10:02 67 03/17/18 09:00 70 03/17/18 08:00 80 03/17/18 07:25 98.2 99 16 124/68 (86) 99 03/17/18 07:00 81 03/17/18 06:35 67 03/17/18 05:29 63 03/17/18 04:04 64 03/17/18 03:47 98.3 68 18 92/57 (69) 98 03/17/18 03:32 75 03/17/18 02:05 58 03/17/18 01:38 58 03/17/18 00:25 61 03/16/18 23:35 98.0 68 18 104/65 (78) 98 03/16/18 23:35 56 03/16/18 22:04 60 03/16/18 21:00 55 03/16/18 20:48 147 03/16/18 20:00 74 03/16/18 19:45 98.4 67 19 131/79 (96) 97 03/16/18 19:00 64 03/16/18 18:00 66 03/16/18 17:00 68 03/16/18 16:04 53 03/16/18 15:33 97.6 72 16 128/70 (89) 98 03/16/18 15:00 63 03/16/18 14:02 66 03/16/18 13:00 62 I/O 03/16/18 03/16/18 03/16/18 03/17/18 03/17/18 03/17/18 07:00 15:00 23:00 07:00 15:00 23:00 Intake Total 980 ml 1020 ml 480 ml Output Total 1150 ml 1325 ml Balance -170 ml 1020 ml -845 ml Intake Oral 480 ml 1020 ml 480 ml IV Total 500 ml Output Urine Total 1150 ml 1325 ml # Voids 1 4 Physical Exam alert no JVD chest CTA CV S1S2 RRR, no murmur Abd soft Ext: no edema Tele: has short runs of NSVT last night Assessment and Plan Problem List: (1) Tobacco use ICD Codes: Z72.0 - Tobacco use (2) Stented coronary artery ICD Codes: Z95.5 - Presence of coronary angioplasty implant and graft (3) Hyperlipidemia LDL goal <70 ICD Codes: E78.5 - Hyperlipidemia, unspecified (4) 2-vessel coronary artery disease ICD Codes: I25.10 - Atherosclerotic heart disease of [place] coronary artery without angina pectoris (5) ST elevation myocardial infarction (STEMI) of inferior wall ICD Codes: I21.19 - ST elevation (STEMI) myocardial infarction involving other coronary artery of inferior wall (6) Family history of coronary artery disease in father ICD Codes: Z82.49 - Family history of ischemic heart disease and other diseases of the circulatory system (7) Nonsustained paroxysmal ventricular tachycardia ICD Codes: I47.2 - Ventricular tachycardia Plan: 2 gram Magnesium IV Assessment and Plan Home in AM if stable. Carl Wade MD Mar 17, 2018 12:22
[2018-03-17] MEDS: MAGNESIUM SULFATE 1 GM PREMIX 100 ML IV SCH ×2 (13:09→14:22)
[2018-03-17] MEDS ORDERED: LORazepam 0.5 MG TAB PO PRN (13:15)
[2018-03-17] MEDS ORDERED: LORazepam 1 MG TAB PO ONE (13:15)
--- NOTE | 2018-03-17 13:39 | ECHRPT ---
Indication: CORONARY ATHEROSCLEROSIS CONCLUSIONS The left ventricular systolic function is normal with an estimated ejection fraction in the range of 60-65%. Normal left ventricular size. Wall thickness is normal. Possible inferior hypokinesis The right ventricle is mildly dilated. The right ventricular systoilc function is mildly decreased. Mild thickening of the mitral valve leaflets. There is trace tricuspid valve regurgitation. The estimated pulmonary arterial pressure is 34.6 mmHg. There is a trivial pericardial effusion present. BP: / HR: Rhythm: Sinus MEASUREMENTS (Male / Female) Normal Values Technical Quality:Fair 2D ECHO LV Diastolic Diameter PLAX 4.6 cm 4.2 - 5.9 / 3.9 - 5.3 cm LV Systolic Diameter PLAX 3.2 cm IVS Diastolic Thickness 0.9 cm 0.6 - 1.0 / 0.6 - 0.9 cm LVPW Diastolic Thickness 0.8 cm 0.6 - 1.0 / 0.6 - 0.9 cm LV Relative Wall Thickness 0.4 RV Internal Dim ED PLAX 2.8 cm LVOT Diameter 1.7 cm Aortic Root Diameter 2.8 cm LA Systolic Diameter LX 3.3 cm 3.0 - 4.0 / 2.7 - 3.8 cm M-MODE AV Cusp Separation MM 1.6 cm DOPPLER AV Peak Velocity 146.0 cm/s AV Peak Gradient 8.5 mmHg AV Mean Gradient 5.0 mmHg AV Velocity Time Integral 24.1 cm LVOT Peak Velocity 129.0 cm/s LVOT Peak Gradient 6.7 mmHg LVOT Velocity Time Integral 22.9 cm AV Area Cont Eq vti 2.2 cm AV Area Cont Eq pk 2.0 cm Mitral E Point Velocity 77.0 cm/s Mitral A Point Velocity 55.3 cm/s Mitral E to A Ratio 1.4 LV E' Lateral Velocity 9.2 cm/s Mitral E to LV E' Lateral Ratio 8.4 LV E' Septal Velocity 9.2 cm/s Mitral E to LV E' Septal Ratio 8.4 TR Peak Velocity 248.0 cm/s TR Peak Gradient 24.6 mmHg Right Atrial Pressure 10.0 mmHg Pulmonary Artery Systolic Pressu 34.6 mmHg Right Ventricular Systolic Press 34.6 mmHg PV Peak Velocity 65.4 cm/s PV Peak Gradient 1.7 mmHg FINDINGS LEFT VENTRICLE Normal left ventricular size. Wall thickness is normal. The left ventricular systolic function is normal with an estimated ejection fraction in the range of 60-65%. Possible inferior hypokinesis RIGHT VENTRICLE The right ventricle is mildly dilated. The right ventricular systoilc function is mildly decreased. LEFT ATRIUM The left atrial size is normal. RIGHT ATRIUM The right atrial size is normal. ATRIAL SEPTUM No atrial level shunt is demonstrated by color flow Doppler interrogation. AORTA The aortic root and proximal ascending aorta are normal in size on limited imaging. MITRAL VALVE Mild thickening of the mitral valve leaflets. AORTIC VALVE Trileaflet aortic valve. No aortic valve stenosis or regurgitation. TRICUSPID VALVE There is trace tricuspid valve regurgitation. The estimated pulmonary arterial pressure is 34.6 mmHg. PULMONARY VALVE No pulmonary valve regurgitation or stenosis. VESSELS The inferior vena cava is normal in size. PERICARDIUM There is a trivial pericardial effusion present. Dylan Nicole MD (Electronically Signed) Final Date:17 March 2018 13:38
--- NOTE | 2018-03-17 16:49 | HHI.PR ---
Subjective Remarks The pt was resting very comfortably. His family was at the bedside. The pt endorsed quick jolts of chest pain earlier on that has resolved. No acute concerns at this time. Objective Vitals Vital Signs Date Time Temp Pulse Resp B/P (MAP) Pulse Ox O2 Delivery O2 Flow Rate FiO2 03/17/18 16:13 59 03/17/18 15:05 98.0 65 16 101/70 (80) 99 03/17/18 15:00 55 03/17/18 14:00 58 03/17/18 13:00 66 03/17/18 12:00 67 03/17/18 11:24 98.3 67 16 123/79 (94) 100 03/17/18 11:00 66 03/17/18 10:02 67 03/17/18 09:00 70 03/17/18 08:00 80 03/17/18 07:25 98.2 71 16 124/68 (86) 99 03/17/18 07:00 81 03/17/18 06:35 67 03/17/18 05:29 63 03/17/18 04:04 64 03/17/18 03:47 98.3 68 18 92/57 (69) 98 03/17/18 03:32 75 03/17/18 02:05 58 03/17/18 01:38 58 03/17/18 00:25 61 03/16/18 23:35 98.0 68 18 104/65 (78) 98 03/16/18 23:35 56 03/16/18 22:04 60 03/16/18 21:00 55 03/16/18 20:48 147 03/16/18 20:00 74 03/16/18 19:45 98.4 67 19 131/79 (96) 97 03/16/18 19:00 64 03/16/18 18:00 66 03/16/18 17:00 68 I/O 03/16/18 03/16/18 03/16/18 03/17/18 03/17/18 03/17/18 07:00 15:00 23:00 07:00 15:00 23:00 Intake Total 980 ml 1020 ml 480 ml 100 ml 100 ml Output Total 1150 ml 1325 ml Balance -170 ml 1020 ml -845 ml 100 ml 100 ml Intake Oral 480 ml 1020 ml 480 ml IV Total 500 ml 100 ml 100 ml Output Urine Total 1150 ml 1325 ml # Voids 1 4 Result Diagram: 03/16/18 0341 03/16/18 0341 Imaging Last Impressions Chest X-Ray 03/15/182035 Signed Impressions: CONCLUSION: No acute cardiopulmonary disease. Objective Remarks GENERAL: This is a well-nourished, well-developed patient, in no apparent distress. SKIN: No rashes, ecchymoses or lesions. Cool and dry. HEAD: Atraumatic. Normocephalic. No temporal or scalp tenderness. EYES: Pupils equal round and reactive. Extraocular motions intact. No scleral icterus. No injection or drainage. ENT: Nose without bleeding, purulent drainage or septal hematoma. Throat without erythema, tonsillar hypertrophy or exudate. Uvula midline. Airway patent. NECK: Trachea midline. No JVD or lymphadenopathy. Supple, nontender, no meningeal signs. CARDIOVASCULAR: Regular rate and rhythm. Grade 2 systolic murmur best heard in the LLSB. RESPIRATORY: Clear to auscultation. Breath sounds equal bilaterally. No wheezes , rales, or rhonchi. GASTROINTESTINAL: Abdomen soft, non-tender, nondistended. No hepato-splenomegaly , or palpable masses. No guarding. MUSCULOSKELETAL: Extremities without clubbing, cyanosis, or edema. No joint tenderness, effusion, or edema noted. NEUROLOGICAL: Awake and alert. Cranial nerves II through XII intact. Motor and sensory grossly within normal limits. Five out of 5 muscle strength in all muscle groups. Normal speech. Procedures Catheterization A/P Assessment and Plan STEMI The pt had bilateral arm pain, numbness and chest pain. EKG with marked ST elevation. S/p catheterization 03/15 with PCI to RCA. Runs of V tach decreasing. - LAD disease to be intervened upon in 30 days per cardiology. - continue cardiac regimen including ASA, Brilinta, and statin. Increased Lopressor in light of runs of V tach. - telemetry. - cardiology following. Tobacco abuse/ Anxiety The pt says he is done smoking. - cessation instruction. - Ativan as needed. Elevated AST The pt says he does not drink alcohol anymore. Possibly a stress reaction. - follow LFTs. PPx: Per cardiology Discharge Planning Possible d/c in AM Danny Plunkett DO Mar 17, 2018 16:49
[2018-03-18] VITALS (12 sets, daily range): BP systolic 103–110; BP diastolic 56–66; PULSE 57–102; RESP 16–18; TEMP 97.3–98; O2SAT 98–100
[2018-03-18 04:48] LABS: ALBUMIN 3.3 GM/DL (3.4-5.0); CALCIUM 8.4 MG/DL (8.5-10.1); CREATININE 1.1 MG/DL (0.60-1.30); DIRECT BILIRUBIN ADULT 0.1 MG/DL (0.0-0.2); INDIRECT BILIRUBIN 0.7 MG/DL (0.0-0.8); MAGNESIUM 2.2 MG/DL (1.5-2.5); TOTAL BILIRUBIN ADULT 0.8 MG/DL (0.2-1.0); TOTAL PROTEIN 6.6 GM/DL (6.4-8.2)
[2018-03-18] MEDS ORDERED: IOHEXOL 350 MG/ML 50 ML BTL (for Cath Lab) OTHER ONE (06:54)
[2018-03-18] MEDS ORDERED: IOHEXOL 350 MG/ML 100 ML BTL (for Cath Lab) OTHER ONE (06:54)
--- NOTE | 2018-03-18 07:16 | PD.CARD.PN ---
Subjective Subjective Remarks no angina, no complaints Objective Medications Current Medications Medications (Trade) Dose Ordered Sig/Ruben Route Start Time Stop Time Status Last Admin (NS Flush) 2 ml UNSCH PRN IV FLUSH 03/15/18 22:30 (NS Flush) 2 ml BID IV FLUSH 03/16/18 09:00 03/17/18 20:12 (Tylenol) 325 mg Q4H PRN PO 03/15/18 22:30 03/16/18 20:08 (Percocet 5-325 Mg) 1 tab Q4H PRN PO 03/15/18 22:30 03/15/18 23:13 (Aspirin Chew) 81 mg DAILY PO 03/16/18 09:00 03/17/18 08:53 (Brilinta) 90 mg BID PO 03/16/18 09:00 03/17/18 20:07 (Reglan Inj) 10 mg Q4H PRN IV PUSH 03/15/18 22:30 03/15/18 23:05 (Lipitor) 40 mg DAILY PO 03/16/18 09:00 03/17/18 08:53 (Lopressor) 25 mg BID PO 03/16/18 09:00 03/17/18 20:07 (Tears Naturale Opth Soln) 1 drop Q4H PRN EACH EYE 03/16/18 15:45 03/16/18 16:57 (Ativan) 0.5 mg Q8H PRN PO 03/17/18 13:15 03/17/18 22:17 Vital Signs / I&O Vital Signs Date Time Temp Pulse Resp B/P (MAP) Pulse Ox O2 Delivery O2 Flow Rate FiO2 03/18/18 05:00 98.0 93 18 104/56 (72) 100 03/18/18 05:00 65 03/18/18 04:00 67 03/18/18 03:09 57 03/18/18 02:00 62 03/18/18 01:00 65 03/18/18 00:00 57 03/17/18 23:45 98.0 73 18 120/71 (87) 100 03/17/18 23:19 79 03/17/18 22:00 58 03/17/18 21:00 58 03/17/18 20:00 98.1 70 20 121/71 (88) 98 03/17/18 20:00 64 03/17/18 19:00 70 03/17/18 17:13 70 03/17/18 16:13 59 03/17/18 15:05 98.0 65 16 101/70 (80) 99 03/17/18 15:00 55 03/17/18 14:00 58 03/17/18 13:00 66 03/17/18 12:00 67 03/17/18 11:24 98.3 67 16 123/79 (94) 100 03/17/18 11:00 66 03/17/18 10:02 67 03/17/18 09:00 70 03/17/18 08:00 80 03/17/18 07:25 98.2 71 16 124/68 (86) 99 I/O 03/17/18 03/17/18 03/17/18 03/18/18 03/18/18 03/18/18 07:00 15:00 23:00 07:00 15:00 23:00 Intake Total 480 ml 100 ml 820 ml 420 ml Output Total 1325 ml 1000 ml 1200 ml Balance -845 ml 100 ml -180 ml -780 ml Intake Oral 480 ml 720 ml 420 ml IV Total 100 ml 100 ml Output Urine Total 1325 ml 1000 ml 1200 ml # Voids 3 Physical Exam alert no JVD chest CTA CV S1S2 RRR, no murmur Abd soft Ext: no edema Tele: NSR Laboratory Laboratory Tests Test 03/18/18 03:56 Blood Urea Nitrogen 12 MG/DL Creatinine 1.10 MG/DL Random Glucose 93 MG/DL Total Protein 6.6 GM/DL Albumin 3.3 GM/DL Calcium Level 8.4 MG/DL Magnesium Level 2.2 MG/DL Alkaline Phosphatase 91 U/L Aspartate Amino Transf (AST/SGOT) 128 U/L Alanine Aminotransferase (ALT/SGPT) 71 U/L Total Bilirubin 0.8 MG/DL Direct Bilirubin 0.1 MG/DL Sodium Level 143 MEQ/L Potassium Level 4.2 MEQ/L Chloride Level 109 MEQ/L Carbon Dioxide Level 25.0 MEQ/L Anion Gap 9 MEQ/L Estimat Glomerular Filtration Rate 69 ML/MIN Indirect Bilirubin 0.7 MG/DL Assessment and Plan Problem List: (1) Tobacco use ICD Codes: Z72.0 - Tobacco use Plan: He is stopping (2) Stented coronary artery ICD Codes: Z95.5 - Presence of coronary angioplasty implant and graft Plan: cont ASA 81mg + Brilinta 90mg bid (3) Hyperlipidemia LDL goal <70 ICD Codes: E78.5 - Hyperlipidemia, unspecified Plan: cont atorva 40mg (4) 2-vessel coronary artery disease ICD Codes: I25.10 - Atherosclerotic heart disease of [place] coronary artery without angina pectoris Plan: Plan future revasc LAD/D (5) ST elevation myocardial infarction (STEMI) of inferior wall ICD Codes: I21.19 - ST elevation (STEMI) myocardial infarction involving other coronary artery of inferior wall (6) Family history of coronary artery disease in father ICD Codes: Z82.49 - Family history of ischemic heart disease and other diseases of the circulatory system (7) Nonsustained paroxysmal ventricular tachycardia ICD Codes: I47.2 - Ventricular tachycardia Status: Resolved Plan: resolved Assessment and Plan Discharge Home - OV 2 weeks. No strenuous activity Carl Wade MD Mar 18, 2018 07:16
[2018-03-18] MEDS ORDERED: LIPI10TA PO (07:56)
[2018-03-18] MEDS ORDERED: NITR1SUB3 SL (07:56)
[2018-03-18] MEDS ORDERED: ASPI81 PO (07:56)
[2018-03-18] MEDS ORDERED: METO25TA3 PO (07:56)
[2018-03-18] MEDS ORDERED: BRIL90TA PO (07:56)
--- NOTE | 2018-03-18 08:32 | HHI.DCPOC ---
Discharge Care Plan Diagnosis: (1) STEMI (ST elevation myocardial infarction) Your Health Problems Are: Difficulty with ADL Exercise Tolerance Goals to Promote Your Health * To prevent worsening of your condition and complications * To maintain your health at the optimal level Directions to Meet Your Goals Take your medications as prescribed Follow your dietary instruction Follow activity as directed Keep your appointments as scheduled Take your immunizations and boosters as scheduled If your symptoms worsen call your PCP, if no PCP go to Urgent Care Center or Emergency Room Smoking is Dangerous to Your Health. Avoid second hand smoke Call the 24-hour hour crisis hotline for domestic abuse at Antonio Peoples MD Mar 18, 2018 08:32
[2018-03-18] MEDS: METOPROLOL TARTRATE 25 MG TAB PO SCH (08:34)
--- NOTE | 2018-03-18 08:35 | HHI.DS ---
Discharge Summary Admission Date Mar 15, 2018 at 20:53 Discharge Date: Mar 18, 2018 Admitting Diagnosis STEMI (1) STEMI (ST elevation myocardial infarction) ICD Code: I21.3 - ST elevation (STEMI) myocardial infarction of unspecified site Status: Acute Procedures Catheterization Brief History - From Admission The patient is a 57-year-old male with no significant past medical history who is presenting to the hospital with chest pain. 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 He said both of his arms felt like they were numb and were quite painful. He said that he was having shortness of breath associated with that. He had to take a break from work. Later on he went back to work and the symptoms returned. He went home. At 6 PM he started to experience the same symptoms as well as crushing chest pain. He tried to apply a cold towel to his head and his body and had no improvement. He told his to call for an ambulance. In the emergency department he was found to have a STEMI and was taken to the Medical Anthropologist. He currently denies any symptoms. He denies any palpitations. He did have some nausea earlier on. She would like to go home. He has been endorsing some anxiety. He has been ambulatory. He says about 10 years ago he had similar chest pain that was worked up. Discussed with nursing at the bedside. CBC/BMP: 03/16/18 0341 03/18/18 0356 Significant Findings Laboratory Tests Test 03/15/18 20:35 03/16/18 03:41 03/18/18 03:56 Red Blood Count 3.97 MIL/MM3 (4.50-5.90) 3.77 MIL/MM3 (4.50-5.90) Mean Corpuscular Volume 100.5 FL (80.0-100.0) 101.2 FL (80.0-100.0) Mean Corpuscular Hemoglobin 34.1 PG (27.0-34.0) Activated Partial Thromboplast Time 23.5 SEC (24.3-30.1) Bedside Potassium 3.0 MMOL/L (3.6-5.0) Bedside Glucose 137 MG/DL (68-110) Calcium Level 7.9 MG/DL (8.5-10.1) 7.5 MG/DL (8.5-10.1) 8.4 MG/DL (8.5-10.1) Creatine Kinase MB 4.8 NG/ML (0.5-3.6) 243.9 NG/ML (0.5-3.6) Troponin I 0.63 NG/ML (0.02-0.05) Hemoglobin 12.8 GM/DL (13.0-17.0) Hematocrit 38.1 % (39.0-51.0) Neutrophils (%) (Auto) 79.6 % (16.0-70.0) Lymphocytes # (Auto) 0.9 TH/MM3 (1.0-4.8) Total Protein 6.2 GM/DL (6.4-8.2) Albumin 3.3 GM/DL (3.4-5.0) 3.3 GM/DL (3.4-5.0) Aspartate Amino Transf (AST/SGOT) 273 U/L (15-37) 128 U/L (15-37) Chloride Level 111 MEQ/L (98-107) 109 MEQ/L (98-107) Estimat Glomerular Filtration Rate 82 ML/MIN (>89) 69 ML/MIN (>89) Total Creatine Kinase 2142 U/L (39-308) Creatine Kinase MB % 11.4 % (0.0-4.0) LDL Cholesterol 143 MG/DL (0-99) HDL Cholesterol 37.9 MG/DL (40.0-60.0) Imaging Last Impressions Chest X-Ray 03/15/182035 Signed Impressions: CONCLUSION: No acute cardiopulmonary disease. PE at Discharge GENERAL: This is a well-nourished, well-developed patient, in no apparent distress. SKIN: No rashes, ecchymoses or lesions. Cool and dry. HEAD: Atraumatic. Normocephalic. No temporal or scalp tenderness. EYES: Pupils equal round and reactive. Extraocular motions intact. No scleral icterus. No injection or drainage. ENT: Nose without bleeding, purulent drainage or septal hematoma. Throat without erythema, tonsillar hypertrophy or exudate. Uvula midline. Airway patent. NECK: Trachea midline. No JVD or lymphadenopathy. Supple, nontender, no meningeal signs. CARDIOVASCULAR: Regular rate and rhythm. Grade 2 systolic murmur best heard in the LLSB. RESPIRATORY: Clear to auscultation. Breath sounds equal bilaterally. No wheezes , rales, or rhonchi. GASTROINTESTINAL: Abdomen soft, non-tender, nondistended. No hepato-splenomegaly , or palpable masses. No guarding. MUSCULOSKELETAL: Extremities without clubbing, cyanosis, or edema. No joint tenderness, effusion, or edema noted. NEUROLOGICAL: Awake and alert. Cranial nerves II through XII intact. Motor and sensory grossly within normal limits. Five out of 5 muscle strength in all muscle groups. Normal speech. Hospital Course STEMI S/p catheterization 03/15 with PCI to RCA. Runs of V tach decreasing. - LAD disease to be intervened upon in 30 days per cardiology. - continue cardiac regimen including ASA, Brilinta, and statin. Increased Lopressor in light of runs of V tach. - telemetry. - cardiology following. - Stable for discharge, no strenuous activity Tobacco abuse/ Anxiety The pt says he is done smoking. - cessation instruction. - Ativan as needed. Elevated AST The pt says he does not drink alcohol anymore. Possibly from [place] versus stress reaction. - follow LFTs. A void hepatotoxins PPx: Per cardiology Pt Condition on Discharge: Stable Discharge Disposition: Discharge Home Discharge Time: > 30 minutes Discharge Instructions DIET: Follow Instructions for: Heart Healthy Diet Activities you can perform: Regular-No Restrictions Activities to Avoid: Strenuous Activity, Driving Follow up Referrals: Cardiology - 1 Week PCP Follow-up - 1 Week New Medications: Nitroglycerin SL (Nitroglycerin SL) 0.4 Mg Subl 0.4 MG SL DIRECTED PRN for CHEST PAIN, #100 TAB.SL 0 Refills ONE TABLET UNDER THE TONGUE NEEDED FOR CHEST PAIN, MAY REPEAT EVERY FIVE MINUTES FOR A TOTAL OF 3 DOSES OR CALL 911 IF NO RELIEF Aspirin (Tgt Aspirin) 81 Mg Chw 81 MG PO DAILY for Prevent Blood Clot, #30 EA Atorvastatin (Lipitor) 10 Mg Tab 40 MG PO DAILY for Cholesterol Management, #60 TAB Metoprolol Tartrate (Metoprolol Tartrate) 25 Mg Tab 25 MG PO BID for Regulate Heart Beat, #60 TAB Ticagrelor (Brilinta) 90 Mg Tab 90 MG PO BID for Prevent Blood Clot, #60 TAB Antonio Peoples MD Mar 18, 2018 08:35
[2018-03-18] MEDS: ATORVASTATIN 10 MG TAB PO SCH (08:37)
[2018-03-18] MEDS: ASPIRIN 81 MG CHEW TAB PO SCH (08:37)
[2018-03-18] MEDS: TICAGRELOR 90 MG TAB PO SCH (08:38)
[2018-03-18] MEDS: SODIUM CHLORIDE 0.9% FLUSH 10 ML FLUSH IV FLUSH SCH (08:41)
== END 2018-03-18 12:00 | disposition home or self-care (01) | DRG 246 ==
LOC: NEPE 20:33 → NEDA 20:53 → HCPC 22:15
PROVIDERS: ADMIT Internal Medicine; ATTEND Internal Medicine
PROC: 4A023N7 Measurement of Cardiac Sampling and Pressure, Left Heart, Percutaneous Approach (ICD-10-PCS; principal; 2018-03-15)
PROC: 027037Z Dilation of Coronary Artery, One Artery with Four or More Drug-eluting Intraluminal Devices, Percutaneous Approach (ICD-10-PCS; 2018-03-15)
PROC: B2151ZZ Fluoroscopy of Left Heart using Low Osmolar Contrast (ICD-10-PCS; 2018-03-15)
PROC: B2111ZZ Fluoroscopy of Multiple Coronary Arteries using Low Osmolar Contrast (ICD-10-PCS; 2018-03-15)
PROC: B41F1ZZ Fluoroscopy of Right Lower Extremity Arteries using Low Osmolar Contrast (ICD-10-PCS; 2018-03-15)
PROC: B246ZZZ Ultrasonography of Right and Left Heart (ICD-10-PCS; 2018-03-17)
DX: I21.11 ST elevation (STEMI) myocardial infarction involving right coronary artery (principal); I47.2 Ventricular tachycardia; I25.10 Atherosclerotic heart disease of native coronary artery without angina pectoris; R00.1 Bradycardia, unspecified; F41.9 Anxiety disorder, unspecified; E78.5 Hyperlipidemia, unspecified; F12.90 Cannabis use, unspecified, uncomplicated; F17.200 Nicotine dependence, unspecified, uncomplicated; Z82.49 Family history of ischemic heart disease and other diseases of the circulatory system
CPT/HCPCS: 71045; 80048; 80053; 80061; 80076; 82310; 82550; 82552; 83735; 83880; 84484; 85025; 85610; 85730; 92928; 93005; 93306; 93458; 96374; 99152; 99153; C1725; C1760; C1769; C1874; C1887; C1893; G0269; J0461; J0583; J1644; J2250; J2765; J3010; J3475; J7030; Q9967

== ENCOUNTER 2018-07-05 09:38 | Inpatient (IN) ==
--- NOTE | 2018-07-05 10:41 | ED ---
HPI General Chief Complaint: Chest Pain Stated Complaint: Chest Pain Complaint Time Seen by Provider: 07/05/18 10:26 History of Present Illness HPI narrative: This patient complains of chest pain. At 5 AM he was lying in bed and had a 10-second episode of low midline sternal pressure and heaviness. It was very brief and resolved on its own. It was moderate it is currently gone and he feels well. It has not recurred. He has history of CAD and reports 5 stents. He took aspirin and Plavix this morning as he does every day. No alleviating factors. No exacerbating factors. He thought it might be heartburn related but was not sure. It felt different than his angina pain. Related Data Home Medications Medication Instructions Recorded Confirmed aspirin 81 mg PO DAILY 07/05/18 07/05/18 clopidogrel 75 mg PO DAILY 07/05/18 07/05/18 metoprolol tartrate 25 mg PO BID 07/05/18 07/05/18 pantoprazole 40 mg PO DAILY 07/05/18 07/05/18 Allergies Allergy/AdvReac Type Severity Reaction Status Date / Time No Known Allergies Allergy Verified 07/05/18 10:30 Review of Systems ROS: all other systems reviewed are negative [facility] Medical History Medical History Heart attack (Acute) Surgical History Surgical History History of angioplasty (Acute) Social History Social History Substance History: No History of Abuse Smoking Status: Former smoker How Often Do You Have a Drink Containing Alcohol: Monthly or less Recent Travel in [facility] within the Last 8 Weeks: No Recent Out of Country Travel within the Last 8 Weeks: No Exam Narrative Exam Narrative: GENERAL: Well-nourished, well-developed patient in no apparent distress. SKIN: Focused skin assessment reveals no rash and nodules. Skin is Warm and dry. HEAD: Atraumatic. Normocephalic. EYES: Pupils equal and round. No scleral icterus. No injection or drainage. ENT: No nasal bleeding or discharge. Mucous membranes pink and moist. NECK: Trachea midline. No JVD. CARDIOVASCULAR: Regular rate and rhythm. No murmur appreciated. RESPIRATORY: No accessory muscle use. Clear to auscultation. Breath sounds equal bilaterally. GASTROINTESTINAL: Abdomen soft, non-tender, nondistended. Hepatic and splenic margins not palpable. MUSCULOSKELETAL: No obvious deformities. No clubbing. No cyanosis. No edema. NEUROLOGICAL: Awake and alert. No obvious cranial nerve deficits. Motor grossly within normal limits. Normal speech. PSYCHIATRIC: Appropriate mood and affect; insight and judgment normal. Dilated Course Initial Documented Vital Signs Temperature 98.2 F 07/05/18 09:59 Pulse Rate 57 L 07/05/18 09:59 Respiratory Rate 14 07/05/18 09:59 Blood Pressure 140/69 07/05/18 09:59 Pulse Oximetry 100 10 09:59 Last Documented Vital Signs Temperature 97.7 F 07/05/18 14:04 Pulse Rate 64 07/05/18 14:04 Respiratory Rate 17 07/05/18 14:04 Blood Pressure 134/77 07/05/18 14:04 Pulse Oximetry 99 07/05/18 14:04 Medical Decision Making MDM Narrative Medical decision making narrative: This is a 57-year-old male with history of CAD who complained of a brief 10-second spell of sternal pain and pressure. I have ordered a chest pain workup. He had both aspirin and Plavix prior to arrival. Work appears negative including general labs and cardiac enzymes for 1 set. He does have fairly severe CAD. His pain was quite atypical but I am recommending 23-hour observation in the chest pain center to rule out cardiac cause of his symptoms. He has not had any testing since the stents. 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 Carl Wade but none were returned. Medical Screen Exam Complete: Yes Emergency Medical Condition: Yes Differential Diagnosis Differential Diagnosis: Differential diagnosis includes [place], angina, pericarditis , pleurisy, GERD, anxiety. Medical Records Medical records reviewed: Yes I reviewed the patient's medical records. Lab Data Lab results reviewed: Yes I reviewed the patient's lab results. Lab results narrative: Labs are normal Result diagrams: 07/05/18 10:30 07/05/18 10:30 Lab Results 07/05/18 07/05/18 Range/Units 10:30 10:30 WBC 4.7 (4.0-11.0) th/mm3 RBC 4.29 L (4.50-5.90) mil/mm3 Hgb 15.0 (13.0-17.0) gm/dL Hct 43.7 (39.0-51.0) % MCV 101.9 H (80.0-100.0) fL MCH 34.9 H (27.0-34.0) pg MCHC 34.2 (32.0-36.0) % RDW 13.5 (11.6-17.2) % Plt Count 162 (150-450) th/mm3 MPV 8.6 (7.0-11.0) fL Neut % (Auto) 59.0 (16.0-70.0) % Lymph % (Auto) 27.7 (9.0-44.0) % [place] % (Auto) 10.4 H (0.0-8.0) % Eos % (Auto) 2.3 (0.0-4.0) % Baso % (Auto) 0.6 (0.0-2.0) % Neut # (Auto) 2.8 (1.8-7.7) th/mm3 Lymph # (Auto) 1.3 (1.0-4.8) th/mm3 [place] # (Auto) 0.5 (0.0-0.9) th/mm3 Eos # (Auto) 0.1 (0.0-0.4) th/mm3 Baso # (Auto) 0.0 (0.0-0.2) th/mm3 WBC Differential . Differential Comment Auto diff final Sodium 142 (136-145) meq/L Potassium 4.4 (3.5-5.1) meq/L Chloride 107 (98-107) meq/L Carbon Dioxide 28.2 (21.0-32.0) meq/L Anion Gap 7 (5-15) meq/L BUN 17 (7-18) mg/dL Creatinine 1.20 (0.60-1.30) mg/dL Estimated GFR 63 L (>89) mL/min Random Glucose 77 (74-106) mg/dL Calcium 9.2 (8.5-10.1) mg/dL Total Bilirubin 0.4 (0.2-1.0) mg/dL AST 43 H (15-37) U/L ALT 99 H (12-78) U/L Alkaline Phosphatase 109 (45-117) U/L Total Creatine Kinase 97 (39-308) U/L Troponin I Less than 0.02 L (0.02-0.05) ng/mL Total Protein 8.0 (6.4-8.2) g/dL Albumin 3.9 (3.4-5.0) g/dL Imaging Data Attestation: I personally reviewed and interpreted this imaging study as follows : My impression: Chest x-ray is normal Radiologist's impression: Chest X-Ray 07/05/18 10:35 CONCLUSION: Negative for an acute process ECG Data EKG Prior to Arrival: No Attestation: I personally reviewed and interpreted this ECG as follows: Prior ECG tracings: not available for review Interpretation: EKG reveals a sinus rhythm with a rate of 55. OR interval is 200 ms. [place] is normal. There are no acute ST elevations. He has inverted T waves in leads III and aVF Discharge Plan Discharge Disposition Patient Disposition: 30 Still Patient Discharge Details Diagnosis: Atypical chest pain Physicians Team ED Provider: Nathan Jones Primary Care Provider: UNKNOWN, Rxs /Orders / Referrals /Forms Prescriptions: No Action clopidogrel 75 mg Tablet 75 mg PO DAILY RF: 0 pantoprazole 40 mg Tablet,Delayed Release (Dr/Ec) 40 mg PO DAILY RF: 0 aspirin 81 mg Tablet,Chewable 81 mg PO DAILY RF: 0 metoprolol tartrate 25 mg Tablet 25 mg PO BID RF: 0 Discharge Instructions Patient Printed Instructions: Chest Pain (ED) Discharge Interventions Interventions: Vital Signs Last Done: 07/05/18 14:04 Status ED Status: With Doctor
[2018-07-05 10:51] LABS: Baso % (Auto) 0.6 % (0.0-2.0); Eos # (Auto) 0.1 th/mm3 (0.0-0.4); Eos % (Auto) 2.3 % (0.0-4.0); Hematocrit 43.7 % (39.0-51.0); Lymph # (Auto) 1.3 th/mm3 (1.0-4.8); Lymph % (Auto) 27.7 % (9.0-44.0); Mean Corpuscular HGB Conc 34.2 % (32.0-36.0); Mean Corpuscular Hemoglobin 34.9 pg (27.0-34.0); Mean Corpuscular Volume 101.9 fL (80.0-100.0); Mean Platelet Volume 8.6 fL (7.0-11.0); Mono # (Auto) 0.5 th/mm3 (0.0-0.9); Mono % (Auto) 10.4 % (0.0-8.0); Neut # (Auto) 2.8 th/mm3 (1.8-7.7); Platelet Count 162 th/mm3 (150-450); Red Blood Count 4.29 mil/mm3 (4.50-5.90); Red Cell Distribution Width 13.5 % (11.6-17.2); White Blood Count 4.7 th/mm3 (4.0-11.0)
--- NOTE | 2018-07-05 11:02 | XR ---
EXAM DATE: 07/05/2018 10:35 AM EDT AGE/SEX: 57 years / Male INDICATIONS: Chest pain and shortness of breath. CLINICAL DATA: This is the patient's initial encounter. Patient reports that signs and symptoms have been present for 1 day and indicates a pain score of 6/10. MEDICAL/SURGICAL HISTORY: . Coronary artery disease. . Cardiac stents. [place] [facility] [place]. . FINDINGS: A single AP view of the chest demonstrates the lungs to be symmetrically aerated without evidence of mass, infiltrate or effusion. The cardiomediastinal contours are unremarkable. Osseous structures a re intact. CONCLUSION: Negative for an acute process Electronically signed by: Kristian Noriega MD 07/05/2018 11:00 AM EDT
[2018-07-05 11:08] LABS: Albumin 3.9 g/dL (3.4-5.0); Anion Gap 7 meq/L (5-15); Aspartate Aminotransferase 43 U/L (15-37); Blood Urea Nitrogen 17 mg/dL (7-18); Calcium 9.2 mg/dL (8.5-10.1); Carbon Dioxide 28.2 meq/L (21.0-32.0); Chloride 107 meq/L (98-107); Glomerular Filtration Rate 63 mL/min (>89); Glucose,Random 77 mg/dL (74-106); Potassium 4.4 meq/L (3.5-5.1); Sodium 142 meq/L (136-145)
[2018-07-05 11:09] LABS: Alanine Aminotransferase 99 U/L (12-78)
[2018-07-05 11:13] LABS: Alkaline Phosphatase 109 U/L (45-117)
[2018-07-05 11:21] LABS: Creatine Kinase 97 U/L (39-308)
--- NOTE | 2018-07-05 16:30 | P.HPCA ---
History of Present Illness Primary Care Physician: UNKNOWN Chief Complaint: Chest pain History of Present Illness: This is a 57-year-old male with history of CAD status post multiple stenting of the LAD as he was a STEMI alert March 15, 2018 that presents to ED via private vehicle with complaint of chest discomfort. Patient states that he woke up sometime this morning with severe chest pain, had an episode of emesis, assumed it was heartburn, drink a glass of water and the discomfort resolved and he went back to sleep. When he woke back up the discomfort did not recur. States it does not feel similar to when he was an PR in February. States he has not had that discomfort since but also states he has done nothing really strenuous since then. Voices compliance with all medications however he states statin was stopped 2-3 weeks ago by her physician as he was not tolerating it. He also quit smoking. History of CAD, was a STEMI alert with an inferior PR March 15, 2018. Hypertension and hyperlipidemia. Past tobacco abuse but quit smoking the day he had his PR. There is family history of CAD. Quit smoking approximately 3 months ago. Denies alcohol use. Denies illicit drug use. - Diagnosis (1) Chest pain (2) CAD (coronary artery disease) (3) History of heart artery stent (4) Hypertension (5) Hyperlipidemia Review of Systems General: Patient denies fevers, chills, and recent travel. HEENT: Patient denies headache, sore throat, difficulty swallowing. Cardiovascular: Has the chest discomfort as mentioned above. Denies sensation of heart beating rapidly or irregularly. No syncope. Denies diaphoresis. Respiratory: Denies shortness of breath or inspirational chest discomfort. Denies coughing wheezing or hemoptysis. GI: He was nauseous and had one episode of emesis. Patient denies diarrhea, abdominal pain, bloody stools. Musculoskeletal: Patient denies joint pain or edema. Denies calf pain or edema. Neurovascular: Patient denies numbness, tingling, weakness in extremities. Denies headache. Endocrine: Denies polyuria and polydipsia. Hematologic: Denies easy bruising. Skin: Denies rash or itching. PMFSH - History History Provided By: Patient, Family Member - Medical History Medical History: Medical History (Last Updated 07/05/18 @ 10:35 by Nithya Morales) Heart attack - Surgical History Surgical History: Surgical History (Last Updated 07/05/18 @ 10:36 by Nithya Morales) History of angioplasty - Tobacco History Smoking Status: Former smoker - Alcohol History How Often Do You Have a Drink Containing Alcohol: Monthly or less - Substance Use History Substance History: No History of Abuse - Travel History Recent Travel in the [place] Within the Last 8 Weeks: No Recent Travel Out of the Country Within the Last 8 Weeks: No - Immunization History Tetanus Immunization: Unsure Medications and Allergies Active Medications: Active Medications Aspirin (Aspirin) 325 mg PO DAILY CALE Clopidogrel Bisulfate (Plavix) 75 mg PO DAILY CALE Metoprolol Tartrate (Lopressor) 25 mg PO BID CALE Ondansetron HCl (Zofran Inj) 4 mg IV.PUSH Q6H PRN PRN Reason: NAUSEA Sodium Chloride (Ns Flush) 2 ml IV.FLUSH UNSCH PRN PRN Reason: FLUSH AFTER USING IV ACCESS Sodium Chloride (Ns Flush) 2 ml IV.FLUSH BID CALE Sodium Chloride (Ns Flush) 2 ml IV.FLUSH PRN PRN PRN Reason: FLUSH AFTER USING IV ACCESS Allergies Allergy/AdvReac Type Severity Reaction Status Date / Time No Known Allergies Allergy Verified 07/05/18 10:30 Home Medications Medication Instructions Recorded Confirmed Type aspirin 81 mg PO DAILY 07/05/18 07/05/18 History clopidogrel 75 mg PO DAILY 07/05/18 07/05/18 History metoprolol tartrate 25 mg PO BID 07/05/18 07/05/18 History pantoprazole 40 mg PO DAILY 07/05/18 07/05/18 History Exam Vital signs: Vital Signs 07/05/18 09:59 07/05/18 10:04 07/05/18 10:37 Temperature 98.2 F Pulse Rate 57 L 58 L 58 L Respiratory Rate 14 18 Blood Pressure 140/69 151/75 H Pulse Oximetry 100 100 07/05/18 10:38 07/05/18 12:00 07/05/18 13:42 Temperature 97.8 F 97.7 F Pulse Rate 58 L 61 Respiratory Rate 17 17 Blood Pressure 148/83 H 135/85 Pulse Oximetry 99 99 100 07/05/18 14:04 07/05/18 15:15 Temperature 97.7 F 97.8 F Pulse Rate 64 68 Respiratory Rate 17 17 Blood Pressure 134/77 135/84 Pulse Oximetry 99 Intake & Output 07/04/18 07/05/18 07/05/18 18:59 06:59 18:59 Weight 72.575 kg Narrative: GENERAL: This is a well-nourished, well-developed patient, in no apparent distress. Patient speaks in clear complete sentences. Patient is pleasant. HEENT: Head is atraumatic and normocephalic. Neck is supple without lymphadenopathy and trachea is midline. No JVD or carotid bruits. CARDIOVASCULAR: Regular rate and rhythm without murmurs, gallops, or rubs. RESPIRATORY: Clear to auscultation. Breath sounds equal bilaterally. No wheezes , rales, or rhonchi. Chest wall is nontender. No use of accessory muscles. GASTROINTESTINAL: Abdomen is nontender, nondistended. Abdomen soft. No obvious pulsatile mass or bruit. No CVA tenderness. Strong femoral pulses bilaterally. Normal bowel sounds in all quadrants. MUSCULOSKELETAL: Patient is moving upper and lower extremities freely. No calf tenderness or edema, no Homans sign. Strong pulses in upper and lower extremities. NEUROLOGICAL: Patient is alert and oriented. Cranial nerves 2-12 are grossly intact. No focal deficits and speech is clear. SKIN: No rash and turgor is normal. Results 07/05/18 10:30 07/05/18 10:30 Cardiac Enzymes 07/05/18 Range/Units 10:30 AST 43 H (15-37) U/L Troponin I Less than 0.02 L (0.02-0.05) ng/mL CBC 07/05/18 Range/Units 10:30 WBC 4.7 (4.0-11.0) th/mm3 RBC 4.29 L (4.50-5.90) mil/mm3 Hgb 15.0 (13.0-17.0) gm/dL Hct 43.7 (39.0-51.0) % Plt Count 162 (150-450) th/mm3 Neut # (Auto) 2.8 (1.8-7.7) th/mm3 Lymph # (Auto) 1.3 (1.0-4.8) th/mm3 Graham # (Auto) 0.5 (0.0-0.9) th/mm3 Eos # (Auto) 0.1 (0.0-0.4) th/mm3 Baso # (Auto) 0.0 (0.0-0.2) th/mm3 Comprehensive Metabolic Panel 07/05/18 Range/Units 10:30 Sodium 142 (136-145) meq/L Potassium 4.4 (3.5-5.1) meq/L Chloride 107 (98-107) meq/L Carbon Dioxide 28.2 (21.0-32.0) meq/L BUN 17 (7-18) mg/dL Creatinine 1.20 (0.60-1.30) mg/dL Calcium 9.2 (8.5-10.1) mg/dL AST 43 H (15-37) U/L ALT 99 H (12-78) U/L Alkaline Phosphatase 109 (45-117) U/L Total Protein 8.0 (6.4-8.2) g/dL Albumin 3.9 (3.4-5.0) g/dL Intake and Output 07/05/18 07/05/18 07/05/18 06:59 14:59 22:59 Other: Weight 72.575 kg Patient Weight 07/06/18 06:59 Weight 72.575 kg - Imaging and Cardiology Imaging: Impressions Chest X-Ray 07/05/18 10:35 CONCLUSION: Negative for an acute process EKG interpretations - EKG EKG shows: sinus rhythm (Initial EKG is sinus rhythm with inferior T wave changes. Prior inferior PR.) Caprini VTE Risk Assessment Caprini VTE Risk Assessment: No/Low Risk (score <= 1) Caprini Risk Assessment Model: Point Value = 1 Point Value = 2 Point Value = 3 Point Value = 5 Age 41-60 Minor surgery BMI > 25 kg/m2 Swollen legs Varicose veins or History of unexplained or recurrent spontaneous Oral contraceptives or hormone replacement Sepsis (< 1 month) Serious lung disease, including pneumonia (< 1 month) Abnormal pulmonary function Acute myocardial infarction Congestive heart failure (< 1 month) History of inflammatory bowel disease Medical patient at bed rest Age 61-74 Arthroscopic surgery Major open surgery (> 45 min) Laparoscopic surgery (> 45 min) Malignancy Confined to bed (> 72 hours) Immobilizing plaster cast Central venous access Age >= 75 History of VTE Family history of VTE Factor V Leiden Prothrombin [id number] Lupus anticoagulant Anticardiolipin antibodies Elevated serum homocysteine Heparin-induced thrombocytopenia Other congenital or acquired thrombophilia Stroke (< 1 month) Elective arthroplasty Hip, pelvis, or leg fracture Acute spinal cord injury (< 1 month) Prophylaxis Regimen: Total Risk Factor Score Risk Level Prophylaxis Regimen 0-1 Low Early ambulation 2 Moderate Order ONE of the following: *Sequential Compression Device (SCD) *Heparin 5000 units SQ BID 3-4 Higher Order ONE of the following medications: *Heparin 5000 units SQ TID *Enoxaparin/Lovenox 40 mg SQ daily (WT < 150 kg, CrCl > 30 mL/min) *Enoxaparin/Lovenox 30 mg SQ daily (WT < 150 kg, CrCl > 10-29 mL/min) *Enoxaparin/Lovenox 30 mg SQ BID (WT < 150 kg, CrCl > 30 mL/min) AND/OR *Sequential Compression Device (SCD) 5 or more Highest Order ONE of the following medications: *Heparin 5000 units SQ TID (Preferred with Epidurals) *Enoxaparin/Lovenox 40 mg SQ daily (WT < 150 kg, CrCl > 30 mL/min) *Enoxaparin/Lovenox 30 mg SQ daily (WT < 150 kg, CrCl > 10-29 mL/min) *Enoxaparin/Lovenox 30 mg SQ BID (WT < 150 kg, CrCl > 30 mL/min) AND *Sequential Compression Device (SCD) Assessment and Plan - Assessment (1) Chest pain Code(s): R07.9 - Chest pain, unspecified Status: Acute (2) CAD (coronary artery disease) Code(s): I25.10 - Atherosclerotic heart disease of [place] coronary artery without angina pectoris Status: Acute (3) History of heart artery stent Code(s): Z95.5 - Presence of coronary angioplasty implant and graft Status: Acute (4) Hypertension Code(s): I10 - Essential (primary) hypertension Status: Acute (5) Hyperlipidemia Code(s): E78.5 - Hyperlipidemia, unspecified Status: Acute - Plan * Chest pain: At this time patient be treated as unstable angina. Dr. Vila discussed this patient with Dr. Wade. Requested patient be admitted to medicine and consult him and will either have a heart catheterization this week and by Dr. Marroquin or by him on Sunday. I discussed this patient with Dr. Marroquin. Requested heparin drip. No nitro ointment at the time * History of CAD: Patient with a heart catheterization at this visit. 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 * Hyperlipidemia: Needs to discuss further with his physician. Apparently did not tolerate statins. * Hypertension: Continue medication. Patient is agreeable to this plan.
[2018-07-05] MEDS ORDERED: Heparin 10,000 UNITS/10 ML Vial (for IV use) IV.PUSH STA (16:57)
[2018-07-05 17:14] LABS: Creatine Kinase 77 U/L (39-308)
[2018-07-05] MEDS: Heparin Drip 25,000 UNIT/250 ML BAG IV.CONT PRN (17:46)
[2018-07-05 20:57] LABS: Creatine Kinase 82 U/L (39-308)
[2018-07-05] MEDS: Metoprolol Tartrate 25 MG Tablet PO SCH (21:00)
[2018-07-05] MEDS ORDERED: Heparin 10,000 UNITS/10 ML Vial (for IV use) IV.PUSH PRN (22:58)
--- NOTE | 2018-07-05 23:21 | MB ---
cc: Luisito Marroquin DO DATE: 07/05/2018 REASON FOR CONSULTATION: Chest pain/unstable angina. HISTORY OF PRESENT ILLNESS: Gomez Tompkins is a pleasant 57-year-old male who sees my partner, Dr. Carl Wade, in the office and presented to [facility] Emergency Room due to chest pain. He previously was a STEMI alert and underwent PCI of his RCA and has known residual significant disease of his LAD and diagonal. He has been following up with Dr. Wade since that time with a plan for PCI of his LAD and diagonal in the near future. He woke up sometime this morning with severe chest pain and had an episode of vomiting and assumed it was heartburn, so he drank a glass of water and the discomfort finally went away, so he went back to sleep. In the morning, after telling his about the episode, she felt that he needed to come to the emergency room due to his known coronary artery disease. On arrival, he was evaluated by the chest pain center and they spoke to Dr. Wade, who asked that he be admitted due to his known disease. In seeing him, he is currently hemodynamically stable without chest pain or shortness of breath. PAST MEDICAL HISTORY: 1. Coronary artery disease with a myocardial infarction (03/15/2018). 2. History of remote tobacco abuse. PAST SURGICAL HISTORY: Cardiac catheterization (03/15/2018), left main normal. LAD eccentric 70% proximal stenosis and out of the middle of the stenosis is a diagonal branch that has 90% ostial stenosis. The remainder of the LAD is tortuous but appears normal. Ramus with 30% stenosis. Left circumflex 35% in the mid section. RCA totally occluded, status post [place] drug-eluting stents x 5 (4 x 18, 4 x 18, 4 x 8, 4 x 8, 4 x 8, all overlapped) from the proximal to mid RCA. ALLERGIES: NO KNOWN DRUG ALLERGIES. MEDICATIONS: 1. Aspirin 81 mg daily. 2. Plavix 75 mg daily. 3. Metoprolol tartrate 25 mg b.i.d. 4. Protonix 40 mg daily. FAMILY HISTORY: Denies premature coronary artery disease or sudden cardiac within the family. SOCIAL HISTORY: The patient is a former smoker. He denies alcohol or drug abuse. REVIEW OF SYSTEMS: Fourteen systems were reviewed including osteopathic. Pertinent positives and negatives above, otherwise negative. PHYSICAL EXAMINATION: VITAL SIGNS: Temperature 97.8, heart rate 69, blood pressure 138/77, respirations 16, pulse oximetry 99% on room air. GENERAL: The patient appears well, in no acute distress, alert, awake and oriented x 3. HEENT: Extraocular muscles intact. Mucous membranes moist. NECK: Supple. No JVD at 45 degrees. No carotid bruits heard bilaterally. Carotid upstroke is brisk in nature. HEART: Regular rate and rhythm. Positive first and second heart sounds with no new murmurs, gallops or rubs. LUNGS: Clear to auscultation bilaterally. No wheezes, rales or rhonchi. ABDOMEN: Soft, nontender, nondistended. No organomegaly noted. EXTREMITIES: Show no clubbing, cyanosis or edema. Femoral and distal pulses are intact bilaterally. NEUROLOGIC: No focal deficits. SKIN: Warm, dry and intact. OSTEOPATHIC: No kyphoscoliosis, lordosis or paraspinal tender points. LABORATORY DATA: Hemoglobin 15.0, hematocrit 43.7, platelets 162. Potassium 4.4, BUN 17, creatinine 1.2. Troponins negative x 3. Electrocardiogram (07/05/2018 at 1605 hours), sinus rhythm, inferior infarct. IMPRESSION: 1. Chest pain concerning for unstable angina. 2. Known coronary artery disease with previous percutaneous coronary intervention of right coronary artery above for an acute myocardial infarction (03/15/2018) with known residual left anterior descending/diagonal disease. 3. Remote tobacco abuse. 4. Elevated liver enzymes. RECOMMENDATIONS: 1. Mr. Tompkins presented with a chest pain episode concerning for unstable angina. As he has known residual significant disease, I felt that he needed to be admitted and placed on a heparin drip. 2. If he does have further chest pain, I would place him on a nitroglycerin drip. 3. We will plan for intervention on his LAD/diagonal on Sunday morning unless he becomes hemodynamically or electrically unstable or has chest pain which is unrelieved by nitroglycerin. I spoke to Dr. Wade, who will plan on doing the intervention on Sunday. 4. We will continue him on his aspirin, Plavix and beta alexx therapy. 5. Further recommendations will be made based on the hospital course. Thank you for allowing me to see Gomez Tompkins. If there are any questions, please do not hesitate to call. DO Gabe Marte , 10:49 PM , 11:00 PM [facility] [place]
[2018-07-06] MEDS: Metoprolol Tartrate 25 MG Tablet PO SCH ×2 (08:02→21:15)
[2018-07-06] MEDS: Aspirin 325 MG Tablet PO SCH (08:02)
[2018-07-06] MEDS: Heparin 10,000 UNITS/10 ML Vial (for IV use) IV.PUSH PRN ×2 (08:03→19:18)
--- NOTE | 2018-07-06 11:13 | ECG ---
Date Performed: 07/05/2018 Time Performed: 20:21:36 PTAGE: 57 years EKG: SINUS BRADYCARDIA PROBABLE INFERIOR MYOCARDIAL INFARCTION ABNORMAL ECG Nonspecific ST and T wave abnormalities PREVIOUS TRACING : 07/05/2018 16.05 Since previous tracing, no significant change noted DOCTOR: Josh Camp Interpretating Date/Time 07/06/2018 11:11:40
--- NOTE | 2018-07-06 11:15 | ECG ---
Date Performed: 07/05/2018 Time Performed: 16:05:04 PTAGE: 57 years EKG: Sinus rhythm Inferior myocardial infarction PREVIOUS TRACING : 07/05/2018 10.19 Since previous tracing, no significant change noted DOCTOR: Josh Camp Interpretating Date/Time 07/06/2018 11:13:57
--- NOTE | 2018-07-06 11:18 | ECG ---
Date Performed: 07/05/2018 Time Performed: 10:19:24 PTAGE: 57 years EKG: SINUS BRADYCARDIA WITH SINUS ARRHYTHMIA POSSIBLE INFERIOR MYOCARDIAL INFARCTION ABNORMAL EC G PREVIOUS TRACING : 03/16/2018 03.47 Compared to previous tracing, inferior infarct has evolved. DOCTOR: Josh Camp Interpretating Date/Time 07/06/2018 11:17:15
--- NOTE | 2018-07-06 13:02 | P.PNIM ---
Subjective Interval history: Follow up: chest pain with Hx of CAD Patient reports he feels, "like I don't need to be here." no longer having chest pain Physical Exam Vital signs: Vital Signs 07/05/18 13:42 07/05/18 14:04 07/05/18 15:15 Temperature 97.7 F 97.7 F 97.8 F Pulse Rate 61 64 68 Respiratory Rate 17 17 17 Blood Pressure 135/85 134/77 135/84 Pulse Oximetry 100 99 07/05/18 16:25 07/05/18 20:24 07/05/18 20:25 Temperature 97.8 F 98.1 F Pulse Rate 69 59 L 59 L Respiratory Rate 16 18 Blood Pressure 138/77 126/69 Pulse Oximetry 99 96 07/05/18 21:01 07/05/18 23:48 07/06/18 00:00 Temperature 98.0 F Pulse Rate 56 L 60 50 L Respiratory Rate 17 Blood Pressure 118/62 Pulse Oximetry 98 07/06/18 01:35 07/06/18 03:42 07/06/18 07:26 Temperature 98.2 F Pulse Rate 49 L 59 L Respiratory Rate 17 Blood Pressure 121/67 Pulse Oximetry 97 98 07/06/18 08:00 07/06/18 11:16 Temperature 98.5 F 97.6 F Pulse Rate 65 57 L Respiratory Rate 16 16 Blood Pressure 140/76 131/76 Pulse Oximetry 98 98 Intake & Output 07/05/18 07/06/18 07/06/18 18:59 06:59 18:59 Intake Total 500 / 500 Balance 500 / 500 Weight 72.575 kg Intake: Oral 500 / 500 Other: # Voids 3 Date of Last Bowel Movement 07/05/18 Narrative: GENERAL: This is a well-nourished, well-developed patient, in no apparent distress. CARDIOVASCULAR: Regular rate and rhythm RESPIRATORY: Clear to auscultation. Breath sounds equal bilaterally. GASTROINTESTINAL: Abdomen soft, non-tender, nondistended. Normal active bowel sounds MUSCULOSKELETAL: Extremities without clubbing, cyanosis, or edema. NEURO: Alert & Oriented x4 to person, place, time, situation. Moves all ext x4 Results - Labs CBC & Chem 7: 07/05/18 10:30 07/05/18 10:30 Laboratory Results - last 24 hr 07/05/18 07/05/18 07/05/18 16:00 17:30 20:10 APTT 25.2 Total Creatine Kinase 77 82 Troponin I Less than 0.02 L Less than 0.02 L 07/05/18 07/06/18 07/06/18 23:20 04:21 09:30 APTT 39.5 H D 38.0 H 163.4 H* D Total Creatine Kinase Troponin I 07/06/18 11:10 APTT 76.3 H D Total Creatine Kinase Troponin I Assessment and Plan - Assessment (1) CAD (coronary artery disease) Code(s): I25.10 - Atherosclerotic heart disease of [place] coronary artery without angina pectoris Status: Acute Plan: Chest pain: Cardiac cath 03/15/[address] Wade Cardiac catheterization (03/15/2018), left main normal. LAD eccentric 70% proximal stenosis and out of the middle of the stenosis is a diagonal branch that has 90% ostial stenosis. The remainder of the LAD is tortuous but appears normal. Ramus with 30% stenosis. Left circumflex 35% in the mid section. RCA totally occluded, status post [place] drug-eluting stents x 5 (4 x 18, 4 x 18, 4 x 8, 4 x 8, 4 x 8, all overlapped) from the proximal to mid RCA. CONCLUSIONS: 1. Markedly elevated left ventricular end-diastolic pressure. 2. Preserved ejection fraction with inferior hypokinesis. 3. Two-vessel coronary artery disease with total occlusion of the proximal right coronary artery and severe stenosis of the mid right coronary artery, now successfully stented. The patient has residual severe stenosis in the proximal LAD, which is a bifurcated lesion, [place] 1,1,1 classification. PLAN: We will defer intervention on the LAD probably for 30 days to allow full recovery. I will have him on aspirin and Brilinta, and introduce a beta alexx if heart rate and hemodynamics permit. Will check lipid values. The patient has been counseled to quit smoking. - Patient with known CAD, known to Dr. Wade. Seen in chest pain chest then started on heparin drip - Cardiology consulted - possible cardiac cath Sunday - 07/06 Dr. Whitehead discussed the case with Dr. Wade - continue him on his aspirin, Plavix and beta alexx Hyperlipidemia: Needs to discuss further with his physician. Patient reports he does not tolerate statins. Hypertension: Continue home medication. DVT prophylaxis patient Heparin drip - Attending Attestation Patient examined. Assessment and plan formulated with Deepa Hawkins PA-C. I agree with the above.
--- NOTE | 2018-07-06 16:05 | P.PNCA ---
Subjective Interval history: No events overnight Mild heartburn this morning, felt like his normal indigestion Has had indigestion for years, but once placed on Protonix has not had any... hasn't got Protonix while here Medications and Allergies Active Medications: Active Medications Alprazolam (Xanax) 0.25 mg PO Q8H PRN PRN Reason: ANXIETY AND/OR AGITATION Aspirin (Aspirin) 325 mg PO DAILY [facility] Last Admin: 07/06/18 08:02 Dose: 325 mg Clopidogrel Bisulfate (Plavix) 75 mg PO DAILY [facility] Last Admin: 07/06/18 08:02 Dose: 75 mg Heparin Sodium (Porcine) (Heparin Inj) 2,500 units IV.PUSH UNSCH PRN PRN Reason: aPTT 25-39 Last Admin: 07/06/18 08:03 Dose: 2,500 units Heparin Sodium (Porcine) (Heparin Inj) 5,000 units IV.PUSH UNSCH PRN PRN Reason: aPTT < 25 Heparin Sodium/Dextrose (Heparin/D5w 25,000 U/250 Ml) 25,000 unit in 250 mls @ 9 mls/hr IV.CONT TITRATE PRN; Protocol PRN Reason: Per Protocol Last Titration: 07/06/18 11:38 Dose: 800 units/hr, 8 mls/hr Metoprolol Tartrate (Lopressor) 25 mg PO BID [facility] Last Admin: 07/06/18 08:02 Dose: 25 mg Ondansetron HCl (Zofran Inj) 4 mg IV.PUSH Q6H PRN PRN Reason: NAUSEA Sodium Chloride (Ns Flush) 2 ml IV.FLUSH BID [facility] Last Admin: 07/06/18 11:45 Dose: 2 ml Sodium Chloride (Ns Flush) 2 ml IV.FLUSH PRN PRN PRN Reason: FLUSH AFTER USING IV ACCESS Allergies Allergy/AdvReac Type Severity Reaction Status Date / Time No Known Allergies Allergy Verified 07/05/18 10:30 Home Medications Medication Instructions Recorded Confirmed Type aspirin 81 mg PO DAILY 07/05/18 07/05/18 History clopidogrel 75 mg PO DAILY 07/05/18 07/05/18 History metoprolol tartrate 25 mg PO BID 07/05/18 07/05/18 History pantoprazole 40 mg PO DAILY 07/05/18 07/05/18 History Physical Exam Vital signs: Vital Signs 07/05/18 16:25 07/05/18 20:24 07/05/18 20:25 Temperature 97.8 F 98.1 F Pulse Rate 69 59 L 59 L Respiratory Rate 16 18 Blood Pressure 138/77 126/69 Pulse Oximetry 99 96 07/05/18 21:01 07/05/18 23:48 07/06/18 00:00 Temperature 98.0 F Pulse Rate 56 L 60 50 L Respiratory Rate 17 Blood Pressure 118/62 Pulse Oximetry 98 07/06/18 01:35 07/06/18 03:42 07/06/18 07:26 Temperature 98.2 F Pulse Rate 49 L 59 L Respiratory Rate 17 Blood Pressure 121/67 Pulse Oximetry 97 98 07/06/18 08:00 07/06/18 11:16 07/06/18 15:10 Temperature 98.5 F 97.6 F 97.7 F Pulse Rate 65 57 L 59 L Respiratory Rate 16 16 16 Blood Pressure 140/76 131/76 142/76 H Pulse Oximetry 98 98 97 Intake & Output 07/05/18 07/06/18 07/06/18 18:59 06:59 18:59 Intake Total 500 / 500 Balance 500 / 500 Weight 72.575 kg Intake: Oral 500 / 500 Other: # Voids 3 Date of Last Bowel Movement 07/05/18 Narrative: GENERAL: This is a well-nourished, well-developed patient, in no apparent distress. CARDIOVASCULAR: Regular rate and rhythm RESPIRATORY: Clear to auscultation. Breath sounds equal bilaterally. GASTROINTESTINAL: Abdomen soft, non-tender, nondistended. Normal active bowel sounds MUSCULOSKELETAL: Extremities without clubbing, cyanosis, or edema. NEURO: Alert & Oriented x4 to person, place, time, situation. Moves all ext x4 Results 07/05/18 10:30 07/05/18 10:30 Cardiac Enzymes 07/05/18 07/05/18 07/05/18 Range/Units 10:30 16:00 20:10 AST 43 H (15-37) U/L Troponin I Less than 0.02 L Less than 0.02 L Less than 0.02 L (0.02-0.05) ng/mL Coagulation 07/05/18 07/05/18 07/06/18 Range/Units 17:30 23:20 04:21 APTT 25.2 39.5 H D 38.0 H (24.3-30.1) sec 07/06/18 07/06/18 Range/Units 09:30 11:10 APTT 163.4 H* D 76.3 H D (24.3-30.1) sec CBC 07/05/18 Range/Units 10:30 WBC 4.7 (4.0-11.0) th/mm3 RBC 4.29 L (4.50-5.90) mil/mm3 Hgb 15.0 (13.0-17.0) gm/dL Hct 43.7 (39.0-51.0) % Plt Count 162 (150-450) th/mm3 Neut # (Auto) 2.8 (1.8-7.7) th/mm3 Lymph # (Auto) 1.3 (1.0-4.8) th/mm3 [place] # (Auto) 0.5 (0.0-0.9) th/mm3 Eos # (Auto) 0.1 (0.0-0.4) th/mm3 Baso # (Auto) 0.0 (0.0-0.2) th/mm3 Comprehensive Metabolic Panel 07/05/18 Range/Units 10:30 Sodium 142 (136-145) meq/L Potassium 4.4 (3.5-5.1) meq/L Chloride 107 (98-107) meq/L Carbon Dioxide 28.2 (21.0-32.0) meq/L BUN 17 (7-18) mg/dL Creatinine 1.20 (0.60-1.30) mg/dL Calcium 9.2 (8.5-10.1) mg/dL AST 43 H (15-37) U/L ALT 99 H (12-78) U/L Alkaline Phosphatase 109 (45-117) U/L Total Protein 8.0 (6.4-8.2) g/dL Albumin 3.9 (3.4-5.0) g/dL Intake and Output 07/06/18 07/06/18 07/06/18 06:59 14:59 22:59 Intake Total 500 / 500 Balance 500 / 500 Intake: Oral 500 / 500 Other: # Voids 3 - Imaging and Cardiology Imaging: Impressions Chest X-Ray 07/05/18 10:35 CONCLUSION: Negative for an acute process Assessment and Plan - Assessment (1) Unstable angina Code(s): I20.0 - Unstable angina Status: Acute (2) Chest pain Code(s): R07.9 - Chest pain, unspecified Status: Acute (3) Hypertension Code(s): I10 - Essential (primary) hypertension Status: Acute (4) Hyperlipidemia Code(s): E78.5 - Hyperlipidemia, unspecified Status: Acute (5) CAD (coronary artery disease) Code(s): I25.10 - Atherosclerotic heart disease of [place] coronary artery without angina pectoris Status: Acute (6) History of heart artery stent Code(s): Z95.5 - Presence of coronary angioplasty implant and graft Status: Acute - Plan 1) CAD/[place] Con't on heparin drip Plan for PCI on Sunday Patient in agreement Previous PCI RCA, con't on ASA/Plavix 2) Indigestion Place back on Protonix
[2018-07-06] MEDS: Heparin Drip 25,000 UNIT/250 ML BAG IV.CONT PRN (21:16)
[2018-07-06] MEDS: ALPRAZolam 0.25 MG Tablet PO PRN (21:25)
[2018-07-07] MEDS: Aspirin 325 MG Tablet PO SCH (08:14)
[2018-07-07] MEDS: Metoprolol Tartrate 25 MG Tablet PO SCH ×2 (08:16→20:22)
--- NOTE | 2018-07-07 14:34 | P.PNIM ---
Subjective Interval history: No chest pain, palpitations, or SOB. Physical Exam Vital signs: 07/07/18 12:00 Temperature 98.1 F Pulse Rate 72 Respiratory Rate 18 Blood Pressure 155/103 H Pulse Oximetry 99 Narrative: GENERAL: This is a well-nourished, well-developed patient, in no apparent distress. CARDIOVASCULAR: Regular rate and rhythm RESPIRATORY: Clear to auscultation. Breath sounds equal bilaterally. GASTROINTESTINAL: Abdomen soft, non-tender, nondistended. Normal active bowel sounds MUSCULOSKELETAL: Extremities without clubbing, cyanosis, or edema. NEURO: Alert & Oriented x4 to person, place, time, situation. Moves all ext x4 Results - Labs CBC & Chem 7: 07/05/18 10:30 07/05/18 10:30 Assessment and Plan - Assessment (1) CAD (coronary artery disease) Code(s): I25.10 - Atherosclerotic heart disease of [place] coronary artery without angina pectoris Status: Acute Plan: Chest pain: Cardiac cath 03/15/[address] Wade Cardiac catheterization (03/15/2018), left main normal. LAD eccentric 70% proximal stenosis and out of the middle of the stenosis is a diagonal branch that has 90% ostial stenosis. The remainder of the LAD is tortuous but appears normal. Ramus with 30% stenosis. Left circumflex 35% in the mid section. RCA totally occluded, status post [place] drug-eluting stents x 5 (4 x 18, 4 x 18, 4 x 8, 4 x 8, 4 x 8, all overlapped) from the proximal to mid RCA. CONCLUSIONS: 1. Markedly elevated left ventricular end-diastolic pressure. 2. Preserved ejection fraction with inferior hypokinesis. 3. Two-vessel coronary artery disease with total occlusion of the proximal right coronary artery and severe stenosis of the mid right coronary artery, now successfully stented. The patient has residual severe stenosis in the proximal LAD, which is a bifurcated lesion, [place] 1,1,1 classification. PLAN: We will defer intervention on the LAD probably for 30 days to allow full recovery. I will have him on aspirin and Brilinta, and introduce a beta alexx if heart rate and hemodynamics permit. Will check lipid values. The patient has been counseled to quit smoking. - Patient with known CAD, known to Dr. Wade. Seen in chest pain chest then started on heparin drip - Case d/w Dr. Wade (07/06) - Case d/w Dr. Marroquin (07/06) - Cardiology consulted - [facility] Sunday - continue him on his aspirin, Plavix and beta alexx, heparin - NPO after MN - supportive care Hyperlipidemia: Needs to discuss further with his physician. Patient reports he does not tolerate statins. Hypertension: Continue home medication. DVT prophylaxis patient Heparin drip
--- NOTE | 2018-07-07 15:50 | P.PNCA ---
Subjective Interval history: No events overnight No further indigestion after being on Protonix Medications and Allergies Active Medications: Active Medications Alprazolam (Xanax) 0.25 mg PO Q8H PRN PRN Reason: ANXIETY AND/OR AGITATION Last Admin: 07/06/18 21:25 Dose: 0.25 mg Aspirin (Aspirin) 325 mg PO DAILY [facility] Last Admin: 07/07/18 08:14 Dose: 325 mg Clopidogrel Bisulfate (Plavix) 75 mg PO DAILY [facility] Last Admin: 07/07/18 08:15 Dose: 75 mg Heparin Sodium (Porcine) (Heparin Inj) 2,500 units IV.PUSH UNSCH PRN PRN Reason: aPTT 25-39 Last Admin: 07/06/18 19:18 Dose: 2,500 units Heparin Sodium (Porcine) (Heparin Inj) 5,000 units IV.PUSH UNSCH PRN PRN Reason: aPTT < 25 Heparin Sodium/Dextrose (Heparin/D5w 25,000 U/250 Ml) 25,000 unit in 250 mls @ 9 mls/hr IV.CONT TITRATE PRN; Protocol PRN Reason: Per Protocol Last Admin: 07/06/18 21:16 Dose: 900 units/hr, 9 mls/hr Metoprolol Tartrate (Lopressor) 25 mg PO BID [facility] Last Admin: 07/07/18 08:16 Dose: Not Given Ondansetron HCl (Zofran Inj) 4 mg IV.PUSH Q6H PRN PRN Reason: NAUSEA Pantoprazole Sodium (Protonix) 40 mg PO DAILY [facility] Last Admin: 07/07/18 08:14 Dose: 40 mg Sodium Chloride (Ns Flush) 2 ml IV.FLUSH BID [facility] Last Admin: 07/07/18 08:15 Dose: 2 ml Sodium Chloride (Ns Flush) 2 ml IV.FLUSH PRN PRN PRN Reason: FLUSH AFTER USING IV ACCESS Allergies Allergy/AdvReac Type Severity Reaction Status Date / Time No Known Allergies Allergy Verified 07/05/18 10:30 Home Medications Medication Instructions Recorded Confirmed Type aspirin 81 mg PO DAILY 07/05/18 07/05/18 History clopidogrel 75 mg PO DAILY 07/05/18 07/05/18 History metoprolol tartrate 25 mg PO BID 07/05/18 07/05/18 History pantoprazole 40 mg PO DAILY 07/05/18 07/05/18 History Physical Exam Vital signs: Vital Signs 07/06/18 20:00 07/07/18 00:00 07/07/18 04:00 Temperature 98.0 F 97.7 F 97.9 F Pulse Rate 63 55 L 60 Respiratory Rate 18 17 17 Blood Pressure 126/73 125/73 123/67 Pulse Oximetry 97 95 95 07/07/18 08:00 07/07/18 11:11 07/07/18 12:00 Temperature 97.4 F L 98.1 F Pulse Rate 63 72 Respiratory Rate 17 18 Blood Pressure 137/75 155/103 H Pulse Oximetry 97 97 99 Intake & Output 07/06/18 07/07/18 07/07/18 18:59 06:59 18:59 Intake Total 500 / 500 490 / 490 Balance 500 / 500 490 / 490 Weight 72.6 kg Intake: IV 250 / 250 Heparin/D5W 25,000 U/250 mL 25, 250 / 250 000 unit In 250 ml @ 900 UNITS/ HR 9 mls/hr IV.CONT TITRATE PRN Rx#:[id number] Oral 500 / 500 240 / 240 Other: # Voids 1 Date of Last Bowel Movement 07/06/18 07/06/18 Narrative: GENERAL: This is a well-nourished, well-developed patient, in no apparent distress. CARDIOVASCULAR: Regular rate and rhythm RESPIRATORY: Clear to auscultation. Breath sounds equal bilaterally. GASTROINTESTINAL: Abdomen soft, non-tender, nondistended. Normal active bowel sounds MUSCULOSKELETAL: Extremities without clubbing, cyanosis, or edema. NEURO: Alert & Oriented x4 to person, place, time, situation. Moves all ext x4 Results 07/05/18 10:30 07/05/18 10:30 Cardiac Enzymes 07/05/18 07/05/18 Range/Units 16:00 20:10 Troponin I Less than 0.02 L Less than 0.02 L (0.02-0.05) ng/mL Coagulation 07/05/18 07/05/18 07/06/18 Range/Units 17:30 23:20 04:21 APTT 25.2 39.5 H D 38.0 H (24.3-30.1) sec 07/06/18 07/06/18 07/06/18 Range/Units 09:30 11:10 17:10 APTT 163.4 H* D 76.3 H D 38.6 H D (24.3-30.1) sec 07/07/18 07/07/18 Range/Units 03:20 09:32 APTT 49.1 H D 46.7 H (24.3-30.1) sec Intake and Output 07/07/18 07/07/18 07/07/18 06:59 14:59 22:59 Intake Total 240 / 240 Balance 240 / 240 Intake: Oral 240 / 240 Other: # Voids 1 Weight 72.6 kg Assessment and Plan - Assessment (1) Unstable angina Code(s): I20.0 - Unstable angina Status: Acute (2) Chest pain Code(s): R07.9 - Chest pain, unspecified Status: Acute (3) Hypertension Code(s): I10 - Essential (primary) hypertension Status: Acute (4) Hyperlipidemia Code(s): E78.5 - Hyperlipidemia, unspecified Status: Acute (5) CAD (coronary artery disease) Code(s): I25.10 - Atherosclerotic heart disease of [place] coronary artery without angina pectoris Status: Acute (6) History of heart artery stent Code(s): Z95.5 - Presence of coronary angioplasty implant and graft Status: Acute - Plan 1) CAD/[place] Con't on heparin drip Plan for PCI tomorrow by Dr. Wade Risks, benefits and alternatives discussed with the patient Patient in agreement Previous PCI RCA, con't on ASA/Plavix 2) Indigestion Place back on Protonix
[2018-07-07] MEDS: ALPRAZolam 0.25 MG Tablet PO PRN (21:13)
[2018-07-08] MEDS: Heparin Drip 25,000 UNIT/250 ML BAG IV.CONT PRN (00:11)
[2018-07-08 05:48] VITALS: BP 126/73; PULSE 58; RESP 19; TEMP 97.1
[2018-07-08] MEDS ORDERED: Heparin/NS PF Inj 1,000 ML ONE (07:08)
[2018-07-08] MEDS ORDERED: fentaNYL Citrate Inj 100 MCG/2 ML Ampul ONE (07:22)
[2018-07-08] MEDS ORDERED: Heparin 10,000 UNITS/10 ML Vial (for IV use) ONE (07:23)
[2018-07-08] MEDS ORDERED: Adenosine Stress Test 90 MG/30 ML Vial IV.SIG ONE (08:24)
[2018-07-08 09:15] VITALS: O2SAT 99
[2018-07-08] MEDS ORDERED: Sod Chloride 0.9% Inj 1,000 ML IV.CONT SCH (09:15)
[2018-07-08] MEDS ORDERED: Iohexol 350 MG/ML 50 ML Vial (for Cath Lab) IVCONTRAST ONE (09:34)
[2018-07-08] MEDS ORDERED: Iohexol 350 MG/ML 100 ML Vial (for Cath Lab) IVCONTRAST ONE (09:34)
--- NOTE | 2018-07-08 10:08 | MA ---
cc: Carl Wade MD DATE: 07/08/2018 CARDIAC CATHETERIZATION PROCEDURES PERFORMED: 1. Left heart catheterization. 2. Left ventriculography. 3. Coronary angiography. 4. Right femoral angiography with Angio-Seal placement. 5. IFR and FFR of the LAD. DESCRIPTION OF PROCEDURE: The patient was brought to the cardiac catheterization lab in the fasting state. Using a micropuncture set access was obtained of the right femoral artery. Coronary angiography was then performed using a 3DRC for the right coronary artery and left 4.5 Jong for the left coronary artery. I obtained enough views of the LAD that I was uncertain as to whether the LAD required intervention. There was definitely an ostial diagonal lesion, but I wanted to find out if the LAD lesion was significant. I Already had a 7-[place] sheath; I used a 7-[place] XB-4 LAD guiding catheter to engage the left main. Intravenous Angiomax was started. I then used a pressure wire to obtain an IFR of the LAD with a value of 0.90. Nitroglycerin was given prior to the IFR measurement. I then did an FFR measurement with intravenous adenosine with a value of 0.85. Based on these values, I decided not to perform intervention on the LAD, I would rather treat the diagonal lesion medically. Angiography was then obtained of the right femoral artery via the sheath. An LV gram was performed, followed by Angio-Seal closure. There were no complications. FINDINGS: 1. HEMODYNAMICS: Left ventricular pressure is 124/1 with an end diastolic pressure of 12. Aortic pressure is 137/70 with a mean of 98. There was no gradient during pullback from the left ventricle to the aorta. 2. LEFT VENTRICULOGRAPHY: Left ventriculography reveals a fairly normal ub[place]do left ventricle. There may be a very slight degree of posterobasal hypokinesis. Ejection fraction is normal at 60%. 3. CORONARY ANGIOGRAPHY: The left main coronary artery is a normal-appearing vessel. It trifurcates into the LAD, ramus intermediate branch and circumflex artery. The LAD has proximal stenosis that does not appear to be worse than 50. IFR was 0.90 and FFR was 0.85, confirming it was not hemodynamically significant. The diagonal branch has some ostial eccentric disease, probably 70% severity depending on the view employed. The LAD and diagonal both appear to be about 2 mm size vessels. The circumflex artery is nondominant. The circumflex artery has about 20% irregularities. The ramus intermediate branch has minimal irregularities. The right coronary artery is a large dominant vessel. This vessel is stented from the proximal vessel to the distal, mid segment. The stents are widely patent and slightly ectatic with no stenosis and normal flow. CONCLUSIONS: 1. Normal hemodynamics. 2. Normal left ventricular function. 3. Wide patency of the right coronary artery from previous stenting. 4. No hemodynamically significant stenosis of the left anterior descending. There is disease at the ostium of the diagonal branch which will be managed medically. PLAN: Will be allowed to go home later today. MD CLAY Landon/tae , 09:05 AM , 09:13 AM
--- NOTE | 2018-07-08 13:06 | P.PNIM ---
Subjective Interval history: watching tv pt cleared for dc from cardiology Physical Exam Vital signs: Vital Signs 07/07/18 16:00 07/07/18 20:00 07/08/18 00:00 Temperature 98.1 F 98.1 F 97.6 F Pulse Rate 68 70 59 L Respiratory Rate 18 19 18 Blood Pressure 153/87 H 168/88 H 129/60 Pulse Oximetry 97 98 98 07/08/18 04:00 07/08/18 09:09 Temperature 97.1 F L Pulse Rate 58 L Respiratory Rate 19 Blood Pressure 126/73 Pulse Oximetry 98 99 Intake & Output 07/07/18 07/08/18 07/08/18 18:59 06:59 18:59 Intake Total 520 / 520 250 / 250 Output Total 1800 / 1800 Balance -1280 / -1280 250 / 250 10 Weight 72.9 kg Intake: IV 250 / 250 10 / 10 Heparin/NS PF Inj 1,000 ML @ 0 10 / 10 mls/hr .ROUTE .STK-MED ONE Rx#: [id number] Heparin/D5W 25,000 U/250 mL 25, 250 / 250 000 unit In 250 ml @ 900 UNITS/ HR 9 mls/hr IV.CONT TITRATE PRN Rx#:[id number] Oral 520 / 520 0 / 0 Output: Urine 1800 / 1800 Other: # Voids 2 # Bowel Movements 1 heart reg lung cta abd s/nt ext no edema Results - Labs CBC & Chem 7: 07/05/18 10:30 07/05/18 10:30 Laboratory Results - last 24 hr 07/08/18 06:50 APTT 42.9 H Assessment and Plan - Assessment (1) CAD (coronary artery disease) Code(s): I25.10 - Atherosclerotic heart disease of [place] coronary artery without angina pectoris Status: Acute Plan: Chest pain: Cardiac cath 03/15/[address] Wade Cardiac catheterization (03/15/2018), left main normal. LAD eccentric 70% proximal stenosis and out of the middle of the stenosis is a diagonal branch that has 90% ostial stenosis. The remainder of the LAD is tortuous but appears normal. Ramus with 30% stenosis. Left circumflex 35% in the mid section. RCA totally occluded, status post [place] drug-eluting stents x 5 (4 x 18, 4 x 18, 4 x 8, 4 x 8, 4 x 8, all overlapped) from the proximal to mid RCA. CONCLUSIONS: 1. Markedly elevated left ventricular end-diastolic pressure. 2. Preserved ejection fraction with inferior hypokinesis. 3. Two-vessel coronary artery disease with total occlusion of the proximal right coronary artery and severe stenosis of the mid right coronary artery, now successfully stented. The patient has residual severe stenosis in the proximal LAD, which is a bifurcated lesion, [place] 1,1,1 classification. PLAN: We will defer intervention on the LAD probably for 30 days to allow full recovery. I will have him on aspirin and Brilinta, and introduce a beta alexx if heart rate and hemodynamics permit. Will check lipid values. The patient has been counseled to quit smoking. - Patient with known CAD, known to Dr. Wade. Seen in chest pain chest then started on heparin drip - Case d/w Dr. Wade (07/06) - Case d/w Dr. Marroquin (07/06) - continue him on his aspirin, Plavix and beta alexx, heparin - [facility] today. cleared for dc by Dr Wade. Hyperlipidemia: Needs to discuss further with his physician. Patient reports he does not tolerate statins. Hypertension: Continue home medication. DVT prophylaxis patient Heparin drip
[2018-07-08] MEDS: Aspirin 325 MG Tablet PO SCH (14:00)
[2018-07-08] MEDS: Metoprolol Tartrate 25 MG Tablet PO SCH (14:01)
--- NOTE | 2018-07-17 15:40 | P.DS ---
Date of admission: 07/06/18 13:02 Primary care physician: UNKNOWN Brief History from admission: This is a 57-year-old male with history of CAD status post multiple stenting of the LAD as he was a STEMI alert March 15, 2018 that presents to ED via private vehicle with complaint of chest discomfort. Patient states that he woke up sometime this morning with severe chest pain, had an episode of emesis, assumed it was heartburn, drink a glass of water and the discomfort resolved and he went back to sleep. When he woke back up the discomfort did not recur. States it does not feel similar to when he was an SD in February. States he has not had that discomfort since but also states he has done nothing really strenuous since then. Voices compliance with all medications however he states statin was stopped 2-3 weeks ago by her physician as he was not tolerating it. He also quit smoking. History of CAD, was a STEMI alert with an inferior SD March 15, 2018. Hypertension and hyperlipidemia. Past tobacco abuse but quit smoking the day he had his SD. There is family history of CAD. Quit smoking approximately 3 months ago. Denies alcohol use. Denies illicit drug use. DS: Diagnosis - Discharge Diagnosis (1) CAD (coronary artery disease) Status: Acute DS: Summary Hospital Course: Assessment and Plan - Assessment (1) CAD (coronary artery disease) Code(s): I25.10 - Atherosclerotic heart disease of [place] coronary artery without angina pectoris Status: Acute Plan: Chest pain: Cardiac cath 03/15/[address] Wade Cardiac catheterization (03/15/2018), left main normal. LAD eccentric 70% proximal stenosis and out of the middle of the stenosis is a diagonal branch that has 90% ostial stenosis. The remainder of the LAD is tortuous but appears normal. Ramus with 30% stenosis. Left circumflex 35% in the mid section. RCA totally occluded, status post [place] drug-eluting stents x 5 (4 x 18, 4 x 18, 4 x 8, 4 x 8, 4 x 8, all overlapped) from the proximal to mid RCA. CONCLUSIONS: 1. Markedly elevated left ventricular end-diastolic pressure. 2. Preserved ejection fraction with inferior hypokinesis. 3. Two-vessel coronary artery disease with total occlusion of the proximal right coronary artery and severe stenosis of the mid right coronary artery, now successfully stented. The patient has residual severe stenosis in the proximal LAD, which is a bifurcated lesion, [place] 1,1,1 classification. PLAN: We will defer intervention on the LAD probably for 30 days to allow full recovery. I will have him on aspirin and Brilinta, and introduce a beta alexx if heart rate and hemodynamics permit. Will check lipid values. The patient has been counseled to quit smoking. - Patient with known CAD, known to Dr. Wade. Seen in chest pain chest then started on heparin drip - Case d/w Dr. Wade (07/06) - Case d/w Dr. Marroquin (07/06) - continue him on his aspirin, Plavix and beta alexx, heparin - [facility] today. cleared for dc by Dr Wade. Hyperlipidemia: Needs to discuss further with his physician. Patient reports he does not tolerate statins. Hypertension: Continue home medication. DVT prophylaxis patient Heparin drip - Time Spent with Patient Total time spent providing and/or coordinating discharge services: Greater than 30 minutes - Quality: VTE Deep Vein Thrombosis/Pulmonary Embolism Present on Admission: No Results Procedures completed during hospitalization: [facility] - Impressions ITS Impressions Chest X-Ray 07/05/18 10:35 CONCLUSION: Negative for an acute process Discharge Plan - Discharge Disposition Patient Disposition: 01 Discharge Home - Discharge Condition Condition: Serious - Discharge Order Discharge Orders: Discharge Order (Routine); Ordered 07/08/18 Ordered By: Josh Blum Cardiology Clear for Discharge (Routine); Ordered 07/08/18 Ordered By: Carl Wade - Discharge Details Anticipated Discharge Date: 07/08/18 - Physicians Team Primary Care Provider: UNKNOWN, Attending Provider: Maximo Whitehead Other Providers: Chau Swanson MD
--- NOTE | 2018-07-22 11:49 | CATHPROC ---
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 FR 5 [id number] *[id number] Used MICROPUNCTURE STIFF [id number] *[id number] 534-617T *[id number] PIGTAIL ANG. 145 INFINITI 534-652S CATHETER *[id number] *[id number] 08:52 DAIG/[employer]. JESSICA MEDICAL ANGIOSEAL FR8 FR 8 Used *[id number] 07:01 [employer] BLANKET,WARM AIR CCL * Used *[id number] 07:01 [employer] PACK, CCL CUSTOM * Used *[id number] 07:01 [employer] PACER PEN, SKIN DUAL W/ RULER * Used *[id number] 08:57 [employer] MEDICAL 30 ROBINA INDEFLATOR Used *[id number] 07:01 [employer] MEDICAL WIRE, 3MMJ .035 180CM 180CM Used *[id number] 07:45 [employer] MEDICAL WIRE, 3MMJ .035 180CM 180CM Used *[id number] 07:01 NAMIC MANIFOLD, 4 PORT * Used *[id number] 07:01 [employer] OMNIPAQUE, 350 MG, 150ML 150ML [id number] Used [id number] 07:49 TERUMO MEDICAL SHEATH, FR7 TERUMO (10CM) FR 7 Used *[id number] 08:07 [employer] PRIME WIRE, VERRATA 185CM 185CM Used *[id number] Equipment Model, Serial, Lot Number and Expiration Data Description Model Number Serial Number Lot Number Expiration Date Jose MALDONADOMRicky .035 180CM [id number] 03-23-2021 History: Current Medications Medication Dosage/Unit Route Frequency Last Date/Time Taken HEPARIN Beta Librado ASA PLAVIX History: Allergies Allergy Reaction No Known Allergies History: Risk Factors Family History of Hypertension Dyslipidemia Previous OH Previous Heart Failure Premature CAD No No No No No Prior Valve Prior PCI Prior PCIDate Prior CABG Surgery No Yes 03/15/2018 No Cerebrovascular Peripheral Artery Chronic Lung On Dialysis Diabetes Disease Disease Disease No No No No No History: Symptoms/Diagnosis Selection Items Chest pain History: CV Disease Selection Items Known CAD OH History: Stress Tests Stress or Imaging Studies Performed No History: Other Disease Selection Items CAD HTN History: OH/CV Data Previous Cath Date 03/15/2018 History: Other Current Smoker Method Quit Packs a Day Years Used Pack Years No Cigarettes 1 Years Ago 1 40 40 Labs Hgb (g/dl) Hct (%) WBC (l/cumm) Platelets (thousands) 11.60-17.00 35.00-51.00 4.00-11.00 150.00-450.00 15.0 43.7 4.7 162 Glucose (mg/dl) BUN (mg/dl) Creatinine (mg/dl) BUN:Creatinine (1:x) 74.00-106.00 7.00-18.00 0.50-1.30 10.00-20.00 77 17 1.2 14.2 Na (meq/l) K (meq/l) 136.00-145.00 3.50-5.10 142 4.4 Troponin I (ng/ml) CPK-MB (ng/ML) 0.02-0.05 0.50-3.60 0.02 Not Drawn Medication Medication Total Dose (Bolus/Oral) Medication Total Dosage/Unit 1% XYLOCAINE 20 mL ANGIOMAX BOLUS 11 mL FENTANYL 50 mcg VERSED 4 mg Medications (Bolus/Oral) Medication Time Given Dosage/Unit Administered By Reason VERSED 07/08/2018 7:43:47 AM 1 mg Debora, Jem 1 mg VERSED given in lab by Jem Cazares, RN in Left Antecubital via Peripheral IV. Ordered by Carl Wade. FENTANYL 07/08/2018 7:44:20 AM 50 mcg Debora, Jem 50 mcg FENTANYL given in lab by Jem Cazares RN in Left Antecubital via Peripheral IV. Ordered by Carl Mcadams. VERSED 07/08/2018 7:45:09 AM 1 mg Debora, Jem 1 mg VERSED given in lab by Jem Cazares RN in Left Antecubital via Peripheral IV. Ordered by Carl Wade. 1% XYLOCAINE 07/08/2018 7:46:50 AM 20 mL Carl Wade 20 mL 1% XYLOCAINE given in lab by Carl Wade in Right Groin via Subcutaneous. Ordered by Carl Wade. VERSED 07/08/2018 7:47:40 AM 1 mg Debora, Jem 1 mg VERSED given in lab by Jem Cazares RN in Left Antecubital via Peripheral IV. Ordered by Carl Wade. VERSED 07/08/2018 7:53:54 AM 1 mg Debora, Jem 1 mg VERSED given in lab by Jem Cazares RN in Left Antecubital via Peripheral IV. Ordered by Carl Wade. ANGIOMAX BOLUS 07/08/2018 8:05:12 AM 11 mL Debora, Jem 11 mL ANGIOMAX BOLUS given in lab by Jem Cazares RN in Right Antecubital via Peripheral IV. Ordered by Carl Wade. Medication (Drip) Medication Time Given Dosage/Unit Concentration/Unit Diluent (ml) Solution ADENOSINE DRIP 07/08/2018 8:28:34 AM 612 mL/hr 90 mL 90 NaCl .9 612 mL/hr ADENOSINE DRIP given in lab by Jem Cazares RN in Left Antecubital via Peripheral IV. Pump /Drip Flow = 612 ml/hr using NaCl .9 with a concentration of 90 mL in 90 ml. Ordered by Carl Wade. ANGIOMAX DRIP 07/08/2018 8:08:58 AM 1.75 mg/kg/hr 250 mg 50 NaCl .9 1.75 mg/kg/hr ANGIOMAX DRIP given in lab by Jem Cazares RN in Right Antecubital via Peripheral IV. Pump/Drip Flow = 25.52 ml/hr using NaCl .9 with a concentration of 250 mg in 50 ml. Ordered by Carl Wade. IV Solutions 07/08/2018 7:14:20 AM 0 mL (IV) 250 NaCl .9 IV Solutions given in lab by Jem Cazares RN in Left Antecubital via Peripheral IV. Pump/Drip Flow = 20 ml/hr using NaCl .9. Ordered by Carl Wade. Initial Case Assessment Cardiovascular HR NIBP Chest Pain 70 142/82 0 Edema Present Skin color Skin None Normal Warm Dry Circulatory - Right Pulses Dorsalis Pedis Femoral 3 3 Scale (0,1,2,3,4,d) Circulatory - Left Pulses Dorsalis Pedis Femoral 3 3 Scale (0,1,2,3,4,d) Neurological State Oriented to time-place- Alert Moves all extremities person Respiration - General Respiration Rate SpO2 (%) (B/min) 14 100 Final Case Assessment Cardiovascular HR Rhythm NIBP Chest Pain 71 REG-PVC 126/76 0 Edema Present Skin color Skin None Normal Warm Circulatory - Right Pulses Dorsalis Pedis Femoral 3 3 Scale (0,1,2,3,4,d) Circulatory - Left Pulses Dorsalis Pedis Femoral 3 3 Scale (0,1,2,3,4,d) Circulatory - Lower Extremities Color Lower Right Color Lower Left Normal Normal Neurological State Oriented to time-place- Alert Moves all extremities person Respiration - General Respiration Rate SpO2 (%) (B/min) 18 98 Chronological Log Time Study Chronological Log 7:14:06 Patient arrived via Bed. 7:14:07 Patient Name, D.O.B, / Armband Verified By R.N. 7:14:08 Consent signed by the physician and the patient and verified by the Emergency Room Clinician staff. 7:14:09 Pre-op and post- op instructions given; patient acknowledges understanding of instructions. 7:14:11 Verbal Stimulation=2 Physical Stimulation=2 Airway=2 Respiration=2 TOTAL=8. (0=absent, 1=li mited, 2=present) 7:14:13 Patient has been NPO for More than 6Hrs. 7:14:14 NO Skin Breakdown- 7:14:15 Patient Warmer Placed on the Table. 7:14:18 Disposable Defibrillator Pads Placed On Patient. 7:14:19 Sammy Prominences Protected 7:14:19 A # 20 IV was noted in the Antecubital (left). Grade = 0 IV Solutions given in lab by Jem Cazares RN in Left Antecubital via Peripheral IV. Pump/Drip Flow = 20 ml/hr using 7:14:20 NaCl .9. Ordered by Carl Wade. 7:14:21 History and physical on the chart or being dictated. Vitals capture started with the following parameters, Patient=Adult, Interval=5 min, Initial Pre njiov=456 mmHg, 7:21:24 Deflation Rate=5 mmHg, Cuff placed on Left Arm 7:22:02 HR=70 bpm, OHBW=810/82 mmhg, DmN2=066.0 %, Resp=14 B/min, Pain=0, Gary=10, Lomeli=2 Assessment: Initial Case, HR=70 BPM, TQJE=870/82 mmhg, Chest Pain=0, Edema=None, Color=Normal, S kin = Warm, Dry Right Pulses: Virgil Ped=3, Femoral=3 7:22:22 Left Pulses: Virgil Ped=3, Femoral=3 Neurological: State=Alert, Ox3, CARDONA Respiration: Resp=14 B/min, StD1=397 % 7:22:42 Reference ECG taken 7:27:24 Bilateral groins prepped with 2% chlorhexidine, and draped after a 3 minute waiting time. 7:27:38 HR=65 bpm, ZHFQ=879/93 mmhg, SpO2=99.0 %, Resp=10 B/min, Pain=0, Gary=10, Lomeli=2 7:32:47 HR=71 bpm, MWXH=658/90 mmhg, IqM3=997.0 %, Resp=16 B/min, Pain=0, Gary=10, Lomeli=2 7:33:06 Pressure channel 1 zeroed. 7:37:07 HR=69 bpm, THIO=026/83 mmhg, SpO2=99.0 %, Resp=14 B/min, Pain=0, Gary=10, Lomeli=2 7:42:06 HR=76 bpm, IWMU=988/92 mmhg, SpO2=99.0 %, Resp=12 B/min, Pain=0, Gary=10, Lomeli=2 7:43:47 1 mg VERSED given in lab by Jem Cazares RN in Left Antecubital via Peripheral IV. Ordered by Carl Wade. 7:44:20 50 mcg FENTANYL given in lab by Jem Cazares RN in Left Antecubital via Peripheral IV. Orde red by aCrl Wade. Time Out. Correct patient, correct procedure, correct physician, labs, allergies, and equipment verified with boot and shoe laborer 7:44:37 team present. Fire risk assesment completed (see hard stop sheet for coding). Time Out Concu rred by MD and individual staff in procedure. 7:45:09 1 mg VERSED given in lab by Jem Cazares RN in Left Antecubital via Peripheral IV. Ordered by Carl Wade. 7:45:13 Case Start 7:46:50 20 mL 1% XYLOCAINE given in lab by Carl Wade in Right Groin via Subcutaneous. Ordered by Carl Wade. 7:47:07 HR=73 bpm, RCHR=548/89 mmhg, SpO2=98.0 %, Resp=12 B/min, Pain=0, Gary=10, Lomeli=2 7:47:40 1 mg VERSED given in lab by Jem Cazares RN in Left Antecubital via Peripheral IV. Ordered by Carl Wade. 7:48:21 Access site was Right Femoral Artery. A INTRODUCER SET, MICROPUNCTURE STIFF FR 5 was advanced into the Fem Art (right) using the Modif ied Seldinger 7:48:30 technique. A SHEATH, FR7 TERUMO (10CM) FR 7 was exchanged in the Fem Art (right). This was necessary in ord er to achieve 7:48:36 vascular hemostasis. A 3DRC INFINITI CATHETER FR 6 was advanced over a wire. OMNIPAQUE, 350 MG, 150ML 150ML was used for 7:49:27 injections. Recorded Pressure: Ao, HR=66, Condition=Condition 1 7:51:26 (Aorta) Ao 128/69/94 7:51:45 The RCA was injected and visualized at various angles. OMNIPAQUE, 350 MG, 150ML 150ML used. 7:52:04 HR=73 bpm, PAFZ=091/80 mmhg, SpO2=95.0 %, Resp=13 B/min, Pain=0, Gary=10, Lomeli=2 7:52:32 Catheter was removed A JL 4.5 INFINITI CATHETER FR 6 was advanced over a wire. OMNIPAQUE, 350 MG, 150ML 150ML was use d for 7:53:07 injections. 7:53:54 1 mg VERSED given in lab by Jem Cazares RN in Left Antecubital via Peripheral IV. Ordered by Carl Wade. 7:55:13 The LCA was injected and visualized at various angles. OMNIPAQUE, 350 MG, 150ML 150ML used. 7:57:01 HR=75 bpm, XBTQ=567/69 mmhg, SpO2=95.0 %, Resp=15 B/min, Pain=0, Gary=10, Lomeli=2 8:02:00 HR=74 bpm, WPAM=646/69 mmhg, SpO2=95 %, Resp=18 B/min, Pain=0, Gary=10, Lomeli=2 11 mL ANGIOMAX BOLUS given in lab by Jem Cazares RN in Right Antecubital via Peripheral IV. Or dered by Mauro, 8:05:12 Carl. 8:05:21 Catheter was removed A XBLAD 4.0 GUIDE CATHETER FR 7 was advanced over a wire. OMNIPAQUE, 350 MG, 150ML 150ML was use d for 8:05:23 injections. 8:07:01 HR=69 bpm, PDDN=310/66 mmhg, SpO2=97.0 %, Resp=12 B/min, Pain=0, Gary=10, Lomeli=2 8:07:40 A PRIME WIRE, VERRATA 185CM 185CM was inserted via Fem Art (right). 1.75 mg/kg/hr ANGIOMAX DRIP given in lab by Jem Cazares RN in Right Antecubital via Peripheral IV. Pump/Drip Flow 8:08:58 = 25.52 ml/hr using NaCl .9 with a concentration of 250 mg in 50 ml. Ordered by Carl Wade. 8:09:00 PRIME Wire removed 8:12:02 HR=68 bpm, AHVZ=666/70 mmhg, SpO2=96.0 %, Resp=12 B/min, Pain=0, Gary=10, Lomeli=2 8:17:03 HR=64 bpm, HQUR=197/61 mmhg, SpO2=97.0 %, Resp=0 B/min, Pain=0, Gayr=10, Lomeli=2 8:20:44 A PRIME WIRE, VERRATA 185CM 185CM was inserted via Fem Art (right). 8:22:02 HR=66 bpm, SHLH=001/65 mmhg, SpO2=97.0 %, Resp=12 B/min, Pain=0, Gary=10, Lomeli=2 8:25:03 Flow Wire was was placed in the LAD Mid. The FFR measures ~FFR~ percent. The IFR measures 0. 9 Percent. 8:27:01 HR=67 bpm, ASHL=896/66 mmhg, SpO2=98.0 %, Resp=16 B/min, Pain=0, Gary=10, Lomeli=2 612 mL/hr ADENOSINE DRIP given in lab by Jem Cazares, RN in Left Antecubital via Peripheral IV. Pump/Drip Flow = 8:28:34 612 ml/hr using NaCl .9 with a concentration of 90 mL in 90 ml. Ordered by Carl Wade. 8:32:02 HR=81 bpm, XIST=963/72 mmhg, CyE8=498.0 %, Resp=13 B/min, Pain=0, Gary=10, Lomeli=2 8:33:51 ADENOSINE DRIP DISCONTINUED 8:37:01 HR=76 bpm, TOZA=428/86 mmhg, SpO2=95.0 %, Resp=14 B/min, Pain=0, Gary=10, Lomeli=2 8:40:00 PRIME Wire removed 8:40:04 Catheter was removed 8:42:02 HR=62 bpm, UPDR=958/83 mmhg, SpO2=98.0 %, Resp=9 B/min, Pain=0, Gary=10, Lomeli=2 A PIGTAIL ANG. 145 INFINITI CATHETER FR 6 was advanced over a wire. OMNIPAQUE, 350 MG, 150ML 150 ML was 8:43:22 used for injections. 8:43:57 LV INJECTOR LOADED WITH CONTRAST AND VERIFIED TO BE FREE OF AIR BY JEM CAZARES Recorded Pressure: LV, HR=65, Condition=Condition 1 8:44:42 (Left Ventricle) LV 126/0/9 8:46:06 The LV was injected at 10 cc/sec for a total of 30. OMNIPAQUE, 350 MG, 150ML 150ML used. 8:47:05 HR=64 bpm, VLYE=748/76 mmhg, SpO2=98.0 %, Resp=21 B/min, Pain=0, Gary=10, Lomeli=2 Recorded Pressure: LV, Ao, HR=70, Condition=Condition 1 8:47:55 (Left Ventricle) LV 124/1/12, (Aorta) Ao 137/70/98 8:48:12 Catheter was removed Assessment: Final Case, HR=71 BPM, Rhythm=REG-PVC, HFGE=012/76 mmhg, Chest Pain=0, Edema=None, Color=Normal, Skin = Warm Right Pulses: Virgil Ped=3, Femoral=3 Left Pulses: Virgil Ped=3, Femoral=3 8:48:16 Lower Right Extremities: Color=Normal Lower Left Extremities: Color=Normal Neurological: State=Alert, Ox3, CARDONA Respiration: Resp=18 B/min, SpO2=98 % 8:48:57 An injection in the Fem Art (right) was made through the SHEATH, FR7 TERUMO (10CM) FR 7. 8:49:15 Catheter(s) removed without difficulty 8:51:22 ANGIOSEAL FR8 FR 8 placement in the Fem Art (right) 8:51:36 Case End (Physician broke scrub) 8:51:38 Sterile dressing applied to site 8:51:39 No case complications noted. 8:52:37 HR=60 bpm, NACF=707/79 mmhg, SpO2=99.0 %, Resp=19 B/min, Pain=0, Gary=10, Lomeli=2 8:52:37 Cine recording checked. 8:52:41 Bedside Report will be given. 8:57:08 HR=59 bpm, SZTD=345/76 mmhg, SpO2=99.0 %, Resp=21 B/min, Pain=0, Gary=10, Lomeli=2 8:57:18 A Left Heart Cath was performed. 8:57:21 Clinical correlaton risk stratification. 9:02:05 HR=71 bpm, SYJE=279/85 mmhg, SpO2=99.0 %, Pain=0, Gary=10, Lomeli=2 9:02:17 Vitals capture stopped. End Study - Contrast Media Used In Study Contrast Total Opened (mL) Total Used (mL) Total Wasted (mL) Omnipaque 110 110 0 End Study - Maximum Contrast Load Max Contrast Load (mL) 303.8 End Study - Radiation Exposure Fluoro Time (minutes) 4.1 End Study - Sheaths Sheaths Pulled By Sheath Hold Time (min) Carl Wade End Study - Patient Disposition Complications Transferred To Interventional Outcome No Emergency Room Clinician Holding No attempt made
== END 2018-07-08 15:22 | disposition home or self-care (01) ==
LOC: NEDA 09:38 → NEPE 09:38 → NEDA 16:25 → NEPGCP 16:43 → N04 07-06 18:53 → HCIS 07-08 08:04
PROVIDERS: ADMIT Hospitalist; ATTEND Hospitalist